=== PATIENT | male | born 1935 | race Caucasian/White ===

== ENCOUNTER 2018-04-10 09:53 | Inpatient (IN) ==
[2018-04-10] MEDS ORDERED: 0.9 % Sodium Chloride 1,000 ML IVC ONE (10:31)
[2018-04-10] MEDS ORDERED: Acetaminophen 325 MG TABLET PO ONE (10:32)
--- NOTE | 2018-04-10 11:07 | Emergency Department Note ---
Disposition Clinical Impression: Elevated troponin, ROBIN (acute kidney injury), Frequent falls UTI (urinary tract infection) Qualifiers: Urinary tract infection type: acute cystitis Hematuria presence: with hematuria Qualified Code(s): N30.01 - Acute cystitis with hematuria Disposition: Admitted As Inpatient Condition: Good Referrals: Eleazar Graff MD [Primary Care Provider] - Forms: ED Satisfaction Letter Time of Disposition: 15:00 General Adult HPI - General Chief complaint: ED Extremity Problem,Nontraumatic Stated complaint: fall Time Seen by Provider: 04/10/18 09:55 Source: EMS Mode of arrival: wheelchair Limitations: no limitations Nursing Notes Reviewed: Yes Vital Signs Reviewed: Yes - History of Present Illness HPI Narrative: 82-year-old male who lives at home with his son presents to the emergency department after multiple falls over the past week. They say throughout the past week he has had a hard time getting up. They have noticed he has been complaining of right hip pain.Having a hard time getting up after he falls. All as well as an unwitnessed they said he never has lost consciousness. Patient does not have any pain anywhere else. Family is getting worried because the increase in falls that the reason why they took him here today. They are also mainly worried about the right hip pain. Patient does not want to be in a ch[facility] he wants to say home. And family is okay with that plan. Patient's hip pain is 6 out of 10 nonradiating sharp stabbing mainly in the right leg. Patient otherwise has no complaints at this time he has had no nausea or vomiting no fevers or chills. Pain Scale: 3 - Related Data Home Medications Medication Instructions Recorded Confirmed Aspirin [Lo-Dose Aspirin EC] 81 mg PO DAILY 04/10/18 04/10/18 Clopidogrel [Plavix] 75 mg PO DAILY 04/10/18 04/10/18 Metoprolol XL (24 HR) Succ [Toprol 50 mg PO DAILY 04/10/18 04/10/18 XL] Ubidecarenone/Vit E Acetate [Co 1 cap PO DAILY 04/10/18 04/10/18 Q-10 100 mg Softgel] Allergies Allergy/AdvReac Type Severity Reaction Status Date / Time No Known Allergies Allergy Verified 04/10/18 14:51 All systems ED: reviewed and negative except as stated. Review of Systems: As Per HPI Constitutional: Denies: fever, chills, weakness, weight change Eyes: Denies: eye pain, eye discharge, vision change ENT ED: Denies: ear pain, throat pain, dental pain, hearing loss, epistaxis, congestion, dysphagia Cardiovascular: Denies: chest pain, palpitations, dyspnea on exertion, edema, syncope Respiratory: Denies: cough, dyspnea, wheezes, hemoptysis, stridor Gastrointestinal: Denies: abdominal pain, nausea, vomiting, diarrhea, constipation, hematemesis, melena, hematochezia Genitourinary: Denies: urgency, dysuria, frequency, hematuria Musculoskeletal: Reports: arthralgia. Denies: back pain, neck pain, myalgia Integumentary: Denies: rash, abrasion, lesions Neurological: Reports: weakness. Denies: headache, numbness, paresthesias, confusion, abnormal gait Psychiatric: Denies: anxiety, depression, suicidal thoughts, homicidal thoughts , auditory hallucinations, visual hallucinations Endocrine: Denies: fatigue Hematological/Lymphatic: Denies: easy bleeding, easy bruising Past Medical History - Past Medical History Attestation: Yes The following information was validated with the patient. Source: patient Medical history: Reports: diabetes, hyperlipidemia, hypertension, myocardial infarction, renal disease - Social History Smoking Status: Current every day smoker Alcohol use: Reports: none Drug use: Reports: none Physical Exam - General Limitations: no limitations General appearance: alert, in no apparent distress - Head Head exam: atraumatic, normocephalic, normal inspection - Eye Eye exam: Present: normal appearance, PERRL, EOMI - ENT ENT exam: normal exam, normal oropharynx, mucous membranes moist - Neck Neck exam: Present: normal inspection, full ROM, trachea midline - Chest Chest inspection: Present: normal inspection, symmetric chest wall rise - Respiratory Respiratory exam: Present: normal lung sounds bilaterally - Cardiovascular Cardiovascular exam: Present: regular rate, normal rhythm, normal heart sounds - Abdominal Exam Abdominal exam: Present: soft, Non-Tender, normal bowel sounds. Absent: tenderness, distention, guarding, rebound, rigidity - Extremities Exam Extremities exam: Present: normal inspection, full ROM. Absent: tenderness, pedal edema - Expanded Lower Extremity Exam Upper leg exam: Present: normal inspection, full ROM Lower leg exam: Present: normal inspection, full ROM Ankle exam: Present: normal inspection, full ROM Neurovascular/Tendon exam: Present: normal capillary refill. Absent: pulse deficit, motor deficit, sensory deficit, tendon deficit - Back Exam Back exam: Present: normal inspection, full ROM. Absent: tenderness, CVA tenderness (R), CVA tenderness (L) - Neurological Exam Neurological exam: Present: alert, oriented X3 - Expanded Neurological Exam Patient oriented to: Present: person, place, time Coma Scale Eye Opening: Spontaneous Coma Scale Motor Response: Obeys Commands Coma Scale Verbal Response: Oriented Coma Scale Total: 15 - Skin Skin exam: Present: warm, dry, intact, normal color Course Course Narrative: 82-year-old male here for multiple falls. We will do a head CT and neck CT as well as basic labs including CBC, BMP, troponin, EKG we will also get a pelvis x -ray and right femur x-ray. - Consultations Consultation #1: Spoke with the on-call hospitalist who agreed to admit the patient to their service. Spoke with Dr. Wheeler Time: 14:59 Vital Signs Temperature 97.9 F 04/10/18 10:01 Pulse Rate 98 04/10/18 10:01 Respiratory Rate 18 04/10/18 10:01 Blood Pressure 162/87 04/10/18 10:01 O2 Sat by Pulse Oximetry 97 04/10/18 10:01 Temperature 97.9 F 04/10/18 10:01 Pulse Rate 102 04/10/18 14:53 Respiratory Rate 18 04/10/18 14:53 Blood Pressure 144/92 04/10/18 14:53 O2 Sat by Pulse Oximetry 95 04/10/18 14:53 Oxygen Delivery Oxygen Delivery Room Air Medical Decision Making - [facility] Narrative Medical decision making narrative: 82-year-old male here for frequent falls. CT head did show possible old subdural hematoma but there is no acute findings. There were also old infarcts in that. CT neck had no acute findings. Labs did show an elevated troponin of 0.16. Due to patient's fall history we felt anticoagulation not necessary at this time and would be contraindicated so patient was not given aspirin. EKG had no acute findings on it. Patient did have an abnormal urinalysis that glucose esterase as well as white blood cells so we did start patient on Rocephin. Hip x-rays as well as femur x-rays did not show any acute fractures. Chest x-ray no acute findings. Due to blood in the urinalysis we did get a CT abdomen and pelvis to rule out any signs of stone this did not have any stones or any other acute findings in the abdomen series. Patient did have a leukocytosis of 18. Patient also has elevated creatinine but does have stage IV chronic kidney disease and is known for that. This is unchanged when compared with old ones. And after speaking with family. After speaking with family they felt that admission would be warranted so they can get all this taking care of in the hospital. I spoke with the hospitalist on-call who agreed to admit the patient. Patient was admitted in stable condition. Cervical Spine CT 04/10/18 10:30 IMPRESSION: No acute osseous injury of the cervical spine. D/ / 04/10/2018 12:11:41 Marshal Anderson MD / Sabi Cortes Interpreting Provider: Marshal Anderson MD Head CT 04/10/18 10:30 IMPRESSION: No acute intracranial hemorrhage or mass lesion. Chronic appearing infarcts. Positional prominence of subarachnoid spaces over both cerebral convexities and the cerebellum. Small subdural hygromas and/or chronic subdural hematomas are considered less likely. D/ / Marcell Ramirez MD / Marcell Ramirez MD Interpreting Provider: Marcell Ramirez MD Femur X-Ray 04/10/18 10:32 IMPRESSION: No evidence of acute fracture. D/ / Marcell Ramirez MD / Marcell Ramirez MD Interpreting Provider: Marcell Ramirez MD Pelvis X-Ray 04/10/18 10:32 IMPRESSION: No evidence of acute fracture. D/ / Marcell Ramirez MD / Marcell Ramirez MD Interpreting Provider: Marcell Ramirez MD Chest X-Ray 04/10/18 12:04 IMPRESSION: 1. Basilar atelectasis with trace effusions. 2. No displaced fracture is identified. D/ / 04/10/2018 13:19:58 Delmi Arcos MD / shavon Interpreting Provider: Delmi Arcos MD Abdomen/Pelvis CT 04/10/18 13:38 IMPRESSION: 1. No acute intra-abdominal abnormality to account for the patient's symptoms. 2. Aneurysmal dilatation of the infrarenal abdominal aorta up to 3.7 cm. Severe atherosclerosis. 3. Nonobstructing left nephrolithiasis. Left renal atrophy is also present. 4. Cholelithiasis. 5. Severe diverticulosis. RECOMMENDATIONS: Managing Abdominal Aortic Aneurysms 3.5-3.9 cm: Every 1 year. Reference: J Vasc Surg. 2008;50(4 Suppl):S2-49 D/ / Delmi Arcos MD / Delmi Arcos MD Interpreting Provider: Delmi Arcos MD - Medical Records Medical records reviewed: Yes I reviewed the patient's medical records. - Lab Data Lab results reviewed: Yes I reviewed the patient's lab results. Result diagrams: 04/10/18 11:40 04/10/18 11:40 Lab Results 04/10/18 04/10/18 04/10/18 Range/Units 11:40 11:40 13:11 WBC 18.5 H (4.3-11.1) K/mcL RBC 4.18 L (4.19-5.50) M/mcL Hgb 12.4 L (12.9-16.9) g/dL Hct 38.8 (37.5-50.1) % MCV 92.8 (83.0-100.0) fL MCH 29.7 (28.0-33.3) pg MCHC 32.0 (31.6-35.5) g/dL RDW 14.4 (11.5-14.5) % Plt Count 173 (140-400) K/mcL MPV 11.3 (9.4-12.4) fL Immature Gran % 0.6 (0-4) % Seg Neutrophils % 80.7 % Lymphocytes % 6.5 % Monocytes % 12.0 % Eosinophils % 0.0 % Basophils % 0.2 % Neutrophils # 14.9 H (1.6-8.9) K/mcL Lymphocytes # 1.2 (0.6-4.6) K/mcL Monocytes # 2.2 H (0.0-1.3) K/mcL Eosinophils # 0.0 (0.0-0.6) K/mcL Basophils # 0.0 (0.0-0.2) K/mcL Sodium 139 (136-145) mEq/L Potassium 3.7 (3.5-5.1) mEq/L Chloride 109 H (98-107) mEq/L Carbon Dioxide 22 L (23-29) mEq/L BUN 46 H (8-23) mg/dL Creatinine 3.18 H (0.70-1.30) mg/dL Est GFR ( Amer) 23 L (> 60) Est GFR (Non-Af Amer) 19 L (> 60) BUN/Creatinine Ratio 14 (6-26) Glucose 115 H (70-105) mg/dL Calculated Osmolality 301 H (280-300) Calcium 10.5 H (8.6-10.3) mg/dL Magnesium 2.1 (1.6-2.6) mg/dL Troponin I 0.16 H* (< 0.04) ng/mL Urine Color Yellow (Yellow) Urine Clarity Cloudy A (Clear) Urine pH 5.5 (5.0-8.0) pH Units Ur Specific Nichols 1.016 (1.010-1.025) Urine Protein 100 H (Neg-Trace) mg/dL Urine Glucose (UA) Normal (Normal) mg/dL Urine Ketones Negative (Negative) mg/dL Urine Blood Moderate H (Negative) Urine Nitrite Negative (Negative) Urine Bilirubin Negative (Negative) Urine Urobilinogen Normal (Normal) mg/dL Ur Leukocyte Esterase Large H (Negative) Urine Microscopic RBC 5-15 H (0-3) per hpf Urine Microscopic WBC 30-50 H (0-3) per hpf Ur Squamous Epith Cells Few (None-Few) per lpf Ur Culture Indicated? YES A (NO) - Radiology Data Radiology results reviewed: Yes I reviewed the patient's radiology results. - EKG Data EKG #1 EKG attestation: Yes I reviewed and interpreted this EKG. EKG results narrative: EKG done at 1047 review by myself the attending shows sinus rhythm at a rate of 66, NV interval 187, QRS 104, QTc 416 with a no acute ST changes no acute T- wave changes no other signs of ischemia. No heartstring, hypertrophy, heart block. No WPW/Brugada/HOCM. Overall this EKG is unchanged when compared with old one done 05/01/16
[2018-04-10 11:55] LABS: Basophils % 0.2 %; Hematocrit 38.8 % (37.5-50.1); Hemoglobin 12.4 g/dL (12.9-16.9); Immature Granulocytes % 0.6 % (0-4); Lymphocytes # 1.2 K/mcL (0.6-4.6); Lymphocytes % 6.5 %; Mean Corpuscular Hemoglobin 29.7 pg (28.0-33.3); Mean Corpuscular Volume 92.8 fL (83.0-100.0); Mean Platelet Volume 11.3 fL (9.4-12.4); Monocytes # 2.2 K/mcL (0.0-1.3); Neutrophils # 14.9 K/mcL (1.6-8.9); Platelet Count 173 K/mcL (140-400); Red Blood Count 4.18 M/mcL (4.19-5.50); Red Cell Distribution Width 14.4 % (11.5-14.5); Segmented Neutrophils % 80.7 %
[2018-04-10 12:20] LABS: Calcium 10.5 mg/dL (8.6-10.3); Magnesium 2.1 mg/dL (1.6-2.6); Potassium 3.7 mEq/L (3.5-5.1)
[2018-04-10 12:32] LABS: Troponin I 0.16 ng/mL (< 0.04)
--- NOTE | 2018-04-10 12:57 | Emergency Department Note ---
Disposition Clinical Impression: Elevated troponin, ROBIN (acute kidney injury) Disposition: Admitted As Inpatient Condition: Good Referrals: Eleazar Graff MD [Primary Care Provider] - Forms: ED Satisfaction Letter Time of Disposition: 12:57 General Adult HPI - General Chief complaint: ED Extremity Problem,Nontraumatic Stated complaint: fall Time Seen by Provider: 04/10/18 09:55 Source: EMS Mode of arrival: wheelchair Limitations: no limitations - History of Present Illness Pain Scale: 3 - Related Data Allergies Allergy/AdvReac Type Severity Reaction Status Date / Time No Known Allergies Allergy Verified 04/10/18 10:48 Constitutional: Denies: fever, chills, weakness, weight change Eyes: Denies: eye pain, eye discharge, vision change ENT ED: Denies: ear pain, throat pain, dental pain, hearing loss, epistaxis, congestion, dysphagia Cardiovascular: Denies: chest pain, palpitations, dyspnea on exertion, edema, syncope Respiratory: Denies: cough, dyspnea, wheezes, hemoptysis, stridor Gastrointestinal: Denies: abdominal pain, nausea, vomiting, diarrhea, constipation, hematemesis, melena, hematochezia Genitourinary: Denies: urgency, dysuria, frequency, hematuria Musculoskeletal: Reports: arthralgia. Denies: back pain, neck pain, myalgia Integumentary: Denies: rash, abrasion, lesions Neurological: Reports: weakness. Denies: headache, numbness, paresthesias, confusion, abnormal gait Psychiatric: Denies: anxiety, depression, suicidal thoughts, homicidal thoughts , auditory hallucinations, visual hallucinations Endocrine: Denies: fatigue Hematological/Lymphatic: Denies: easy bleeding, easy bruising Past Medical History - Past Medical History Medical history: Reports: diabetes, hyperlipidemia, hypertension, myocardial infarction, renal disease - Social History Smoking Status: Current every day smoker Alcohol use: Reports: none Drug use: Reports: none Physical Exam - General Limitations: no limitations General appearance: alert, in no apparent distress Course Vital Signs Temperature 97.9 F 04/10/18 10:01 Pulse Rate 98 04/10/18 10:01 Respiratory Rate 18 04/10/18 10:01 Blood Pressure 162/87 04/10/18 10:01 O2 Sat by Pulse Oximetry 97 04/10/18 10:01 Temperature 97.9 F 04/10/18 10:01 Pulse Rate 70 04/10/18 11:44 Respiratory Rate 18 04/10/18 11:44 Blood Pressure 158/79 04/10/18 11:44 O2 Sat by Pulse Oximetry 96 04/10/18 11:44 Oxygen Delivery Oxygen Delivery Room Air Medical Decision Making - Lab Data Result diagrams: 04/10/18 11:40 04/10/18 11:40 Lab Results 04/10/18 04/10/18 Range/Units 11:40 11:40 WBC 18.5 H (4.3-11.1) K/mcL RBC 4.18 L (4.19-5.50) M/mcL Hgb 12.4 L (12.9-16.9) g/dL Hct 38.8 (37.5-50.1) % MCV 92.8 (83.0-100.0) fL MCH 29.7 (28.0-33.3) pg MCHC 32.0 (31.6-35.5) g/dL RDW 14.4 (11.5-14.5) % Plt Count 173 (140-400) K/mcL MPV 11.3 (9.4-12.4) fL Immature Gran % 0.6 (0-4) % Seg Neutrophils % 80.7 % Lymphocytes % 6.5 % Monocytes % 12.0 % Eosinophils % 0.0 % Basophils % 0.2 % Neutrophils # 14.9 H (1.6-8.9) K/mcL Lymphocytes # 1.2 (0.6-4.6) K/mcL Monocytes # 2.2 H (0.0-1.3) K/mcL Eosinophils # 0.0 (0.0-0.6) K/mcL Basophils # 0.0 (0.0-0.2) K/mcL Sodium 139 (136-145) mEq/L Potassium 3.7 (3.5-5.1) mEq/L Chloride 109 H (98-107) mEq/L Carbon Dioxide 22 L (23-29) mEq/L BUN 46 H (8-23) mg/dL Creatinine 3.18 H (0.70-1.30) mg/dL Est GFR ( Amer) 23 L (> 60) Est GFR (Non-Af Amer) 19 L (> 60) BUN/Creatinine Ratio 14 (6-26) Glucose 115 H (70-105) mg/dL Calculated Osmolality 301 H (280-300) Calcium 10.5 H (8.6-10.3) mg/dL Magnesium 2.1 (1.6-2.6) mg/dL Troponin I 0.16 H* (< 0.04) ng/mL Attestation Statement - Attestation Attestation: I examined this patient and my medical decision-making was reviewed with the Resident Physician. I agree with the documented findings, disposition and treatment plan as described except to the extent set forth below. 82 year old male presents to the ED with complaints of unwtinessed fall that happened about 2 dasa go. PAtients tates that he has right hip pain and did hit his head on his fall. It appears that he has an elevated troponin level with small t wave inversions in V3-4 from 2016 and we have considered ASA therapy although HCT shows a possible chornic subdural hematoma vs hygroma. And with his age and possible chronic hematoma I would not recommend anticoagultion therapy at this time. Ananya als ohas worsening ROBIN. He was not down for a prolonged time. We will obtain a UA and then admi to medicine
[2018-04-10 13:28] LABS: Bilirubin,Urine Negative (Negative); Blood,Urine Moderate (Negative); Clarity,Urine Cloudy (Clear); Color,Urine Yellow (Yellow); Glucose,Urine (UA) Normal (Normal); Ketones,Urine Negative (Negative); Leukocyte Esterase,Urine Large (Negative); Nitrite,Urine Negative (Negative); PH,Urine 5.5 pH Units (5.0-8.0); Protein,Urine 100 mg/dL (Neg-Trace); Specific Gravity,Urine 1.016 (1.010-1.025); Urobilinogen,Urine Normal (Normal)
[2018-04-10 13:52] LABS: Squamous Epithelial Cell,Urine Few per lpf (None-Few); WBC,Urine 30-50 per hpf (0-3)
[2018-04-10] MEDS ORDERED: cefTRIAXone 1,000 MG in 0.9 % Sodium Chloride Mini Bag 100 ML IVPB ONE (13:55)
--- NOTE | 2018-04-10 16:10 | Internal Med History&Physical ---
Date of Encounter: 04/10/18 Time of Encounter: 16:10 Internal Medicine - H&P: HPI Chief complaint: fall Admitted From: Home History of present illness: Mr. Patiño is a 82 year old male Past Med Surg Social Fam HX - Past Medical History Medical history: diabetes, hyperlipidemia, hypertension, myocardial infarction, renal disease - Social History Smoking Status: Current every day smoker Alcohol use: none Drug use: none Internal Medicine - H&P: Meds Aspirin [Lo-Dose Aspirin EC] 81 mg PO DAILY 04/10/18 [History] Clopidogrel [Plavix] 75 mg PO DAILY 04/10/18 [History] Metoprolol XL (24 HR) Succ [Toprol XL] 50 mg PO DAILY 04/10/18 [History] Ubidecarenone/Vit E Acetate [Co Q-10 100 mg Softgel] 1 cap PO DAILY 04/10/18 [ History] 3 Allergy/AdvReac Type Severity Reaction Status Date / Time No Known Allergies Allergy Verified 04/10/18 14:51 All Systems PM: A 10-system review of systems was performed and is negative for pertinent findings except as documented above in the HPI. - Constitutional Vitals: Temp Pulse Resp BP Pulse Ox 97.9 F 102 18 144/92 95 04/10/18 10:01 04/10/18 14:53 04/10/18 14:53 04/10/18 14:53 04/10/18 14:53 Internal Med - H&P Results - Labs CBC & Chem 7: 04/10/18 11:40 04/10/18 11:40 - Time Spent With Patient Total time spent is greater than 50% in coordination of care (as documented) at patient's floor/unit and/or counseling patient:
[2018-04-10] MEDS ORDERED: Naloxone 0.4 MG/ML INJ IVP PRN (16:11)
--- NOTE | 2018-04-10 16:26 | Internal Med History&Physical ---
Date of Encounter: 04/10/18 Time of Encounter: 16:00 Internal Medicine - H&P: HPI Chief complaint: Frequent fall Admitted From: Home Plans for Post Hospital Care: Home History of present illness: Mr. Patiño is a 82 year old male presented to ER for frequent fall. Patient past medical history is significant for hypertension, PVD, CKD, AAA. Patient has frequent falls since August. Patient has fall yesterday evening. Patient also complaining right hip pain. Patient's and the family denies loss of consciousness. Not sure if patient has hit his head but he denies head or neck pain. Patient denies other part of the body pain. Patient denies dizziness, shortness of breath, chest pain. In the emergency room, head, c- spine, abdominal CT and pelvis and femoral x-ray has been done. Results are unremarkable. UA shows UTI. Patient has mild elevated troponin and elevated creatinine from baseline. Patient was admitted for frequent fall, acute on chronic renal failure, and elevated troponin. I have discussed CODE STATUS with patient and patient's son. I was clearly told patient does not want CPR or intubation. DNR DNI placed. Past Med Surg Social Fam HX - Past Medical History Medical history: diabetes, hyperlipidemia, hypertension, myocardial infarction, renal disease - Social History Smoking Status: Current every day smoker Alcohol use: none Drug use: none - Family History Mother History Unknown: Yes Internal Medicine - H&P: Meds Aspirin [Lo-Dose Aspirin EC] 81 mg PO DAILY 04/10/18 [History] Clopidogrel [Plavix] 75 mg PO DAILY 04/10/18 [History] Metoprolol XL (24 HR) Succ [Toprol XL] 50 mg PO DAILY 04/10/18 [History] Ubidecarenone/Vit E Acetate [Co Q-10 100 mg Softgel] 1 cap PO DAILY 04/10/18 [ History] 3 Allergy/AdvReac Type Severity Reaction Status Date / Time No Known Allergies Allergy Verified 04/10/18 14:51 All Systems PM: A 10-system review of systems was performed and is negative for pertinent findings except as documented above in the HPI. - Constitutional Vitals: Temp Pulse Resp BP Pulse Ox 97.9 F 102 18 144/92 95 04/10/18 10:01 04/10/18 14:53 04/10/18 14:53 04/10/18 14:53 04/10/18 14:53 General appearance: Present: A&O X 3, no acute distress, answers questions appropriately Exam: Patient is laying on bed comfortably, in NAD - Head Head exam: Present: atraumatic, normocephalic - Eye Eye exam: Present: PERRL, conjuntiva pink, sclera anicteric Pupils: Present: PERRL - Neck Neck exam general surgery: Present: supple, trachea midline. Absent: lymphadenopathy - Respiratory Respiratory exam: Present: CTAB. Absent: accessory muscle use, rales, rhonchi, wheezes - Cardiovascular Cardiovascular exam: Present: RRR, +S1, +S2. Absent: diastolic murmur, gallop, rubs, systolic murmur - GI/Abdominal GI/Abdominal exam: Present: normal bowel sounds, soft, no peritoneal signs. Absent: distended, tenderness - Extremities Exam Extremities exam: Present: pedal edema (Mild pedal edema bilaterally), warm, radial pulses palpable and symmetrical. Absent: calf tenderness, cyanotic Additional comments: Right hip pain, ROM limited. - Neurological Exam Neurological exam: Present: CN II-XII intact, oriented X3, no focal deficits. Absent: pronater drift, facial droop, speech deficit - Skin Skin exam: Present: dry, intact Internal Med - H&P Results - Labs CBC & Chem 7: 04/10/18 11:40 04/10/18 11:40 - Assessment and plan (1) Acute on chronic renal failure Current Visit: Yes Status: Acute Assessment and plan: Patient has CKD. Patient has left kidney atrophy on Abd CT. will closely monitor renal function. Makes pt adequate hydrated. Avoid nephrotoxic medications. Will consult nephrology for further management. Qualifiers: Acute renal failure type: unspecified Chronic kidney disease stage: stage 4 (severe) Qualified Code(s): N17.9 - Acute kidney failure, unspecified; N18.4 - Chronic kidney disease, stage 4 (severe) (2) Hypertension Current Visit: Yes Status: Acute Assessment and plan: Continue home medications. Qualifiers: Hypertension type: essential hypertension Qualified Code(s): I10 - Essential (primary) hypertension (3) PVD (peripheral vascular disease) Current Visit: Yes Status: Acute Assessment and plan: S/P bypass surgery. Continue home medication aspirin and Plavix. (4) DVT prophylaxis Current Visit: Yes Status: Acute Assessment and plan: EPCDs (5) Elevated troponin Current Visit: Yes Status: Acute Assessment and plan: Patient denies chest pain. Mild elevated troponin probably due to CKD. However , need to rule out ACS. - Continuous cardiac monitoring - Track 3 sets of troponin to see the trend. (6) Frequent falls Current Visit: Yes Status: Acute Assessment and plan: Probably due to aging. No fracture identified so far. Will consult PT OT and home health care social worker for further management. (7) UTI (urinary tract infection) Current Visit: Yes Status: Acute Assessment and plan: UA shows UTI. Continue Rocephin. Follow-up urine culture. Qualifiers: Urinary tract infection type: acute cystitis Hematuria presence: without hematuria Qualified Code(s): N30.00 - Acute cystitis without hematuria (8) AAA (abdominal aortic aneurysm) Current Visit: Yes Status: Acute Assessment and plan: CT abd shows AAA with diameter 3.7cm. continue closely monitor as outpatient. Qualifiers: Presence of rupture: without rupture Qualified Code(s): I71.4 - Abdominal aortic aneurysm, without rupture - Time Spent With Patient Total time spent is greater than 50% in coordination of care (as documented) at patient's floor/unit and/or counseling patient: 40 minutes Greater than 35 minutes
[2018-04-11 03:56] LABS: Basophils % 0.1 %; Eosinophils % 0.1 %; Hematocrit 38.4 % (37.5-50.1); Hemoglobin 12.3 g/dL (12.9-16.9); Immature Granulocytes % 0.6 % (0-4); Lymphocytes # 1.2 K/mcL (0.6-4.6); Lymphocytes % 7.4 %; Mean Corpuscular Hemoglobin 29.6 pg (28.0-33.3); Mean Corpuscular Volume 92.3 fL (83.0-100.0); Mean Platelet Volume 11.6 fL (9.4-12.4); Monocytes # 1.4 K/mcL (0.0-1.3); Monocytes % 8.8 %; Neutrophils # 13.4 K/mcL (1.6-8.9); Platelet Count 163 K/mcL (140-400); Red Blood Count 4.16 M/mcL (4.19-5.50); Red Cell Distribution Width 14.5 % (11.5-14.5)
[2018-04-11 04:11] LABS: Magnesium 2.2 mg/dL (1.6-2.6); Uric Acid 6.1 mg/dL (2.3-7.6)
--- NOTE | 2018-04-11 07:57 | Cardiology Consult Note ---
Date of Encounter: 04/11/18 Time of Encounter: 08:57 Assessment and Plan (1) Systolic heart failure, chronic Current Visit: Yes Status: Chronic (2) Acute on chronic renal failure Current Visit: Yes Status: Acute Qualifiers: Acute renal failure type: unspecified Chronic kidney disease stage: stage 4 (severe) Qualified Code(s): N17.9 - Acute kidney failure, unspecified; N18.4 - Chronic kidney disease, stage 4 (severe) (3) Elevated troponin Current Visit: Yes Status: Acute Discussion w patient/family: The patient likely had an elevated troponin secondary to demand ischemia with heart failure. Last EF was 35% done in 2016. Patient denies chest pain and has had no EKG changes. Pt also does not want to undergo a cardiac cath. Continue current medications, no intervention necessary at this time. The assessment and plan as outlined above was discussed with the patient and/or family members who expressed understanding and agreement. All questions were answered. Thank you for involving us in the care of your patient. Please call with any questions. History of Present Illness Consult date: 04/10/18 Requesting physician: Marco Arellano Consult reason: Hx CHF, elevated troponin, EKG changes Chief complaint: fall, right hip pain History of present illness: Mr. Patiño is a 82 year old male with PMHx of CHF and CKD who presents several days after a fall with right hip pain. He states this pain is a 3/10 currently. In the ED he was found to have an elevated troponin, along with ROBIN on CKD. He denies ever having chest pain or shortness of breath, palpitations, abdominal pain, nausea, headache, dizziness or lightheadedness. He did not pass out when he fell, but states his leg just gave out on him. He remembers the event and did not hit his head. When asked if he would like any invasive interventions done in case of a heart arrhythmia or his heart stopping he states he would not want that done and he is DNR-CCa/DNI. He asks if he can be discharged to go home as he feels better. Past Med Surg Social Fam HX - Past Medical History Medical history: diabetes, hyperlipidemia, hypertension, myocardial infarction, renal disease Psychiatric history: no psych history - Past Surgical History Additional surgical history: abd stent at [place], - Social History Smoking Status: Current every day smoker Smokeless Tobacco Status: No Alcohol use: none Drug use: none - Family History Mother History Unknown: Yes Living Status: Age at : 79 Cause of : stroke Hx Family Cardiac Disorders: Yes Medications and Allergies Aspirin [Lo-Dose Aspirin EC] 81 mg PO DAILY 04/10/18 [History] Clopidogrel [Plavix] 75 mg PO DAILY 04/10/18 [History] Metoprolol XL (24 HR) Succ [Toprol XL] 50 mg PO DAILY 04/10/18 [History] Ubidecarenone/Vit E Acetate [Co Q-10 100 mg Softgel] 1 cap PO DAILY 04/10/18 [ History] 3 Allergy/AdvReac Type Severity Reaction Status Date / Time No Known Allergies Allergy Verified 04/10/18 14:51 All Systems Review: The remainder of the systems were reviewed and are negative - Constitutional Constitutional: weakness, no chills, no fatigue, no fever(s) - Cardiovascular Cardiovascular: no chest pain at rest, no chest pain with exertion, no dyspnea at rest, no dyspnea on exertion, no leg edema, no lightheadedness, no palpitations - Respiratory Respiratory: cough, no dyspnea, no hemoptysis, no wheezing - Gastrointestinal Gastrointestinal: no abdominal pain, no constipation, no diarrhea, no nausea - Genitourinary Genitourinary: no dysuria, no hematuria - Musculoskeletal Musculoskeletal: muscle weakness, no muscle cramps - Integumentary Integumentary: no erythema, no rash - Neurological Neurological: no abnormal speech, no dizziness, no numbness, no syncope Physical Examination Vital Signs, Last 4 Hours Temp Pulse Resp BP Pulse Ox 04/11/18 06:59 96 16 193/99 90 04/11/18 04:02 97.5 F L 141 20 159/103 94 04/11/18 03:58 141 21 159/103 General: Conversant, No Apparent Distress HEENT: Atraumatic, Normocephaly, Mucus Membranes Moist Neck: No JVD, Normal carotid pulses Cardiac: Normal S1 and S2, No Murmur, Other (irregular rhythm, regular rate) Lungs: Normal Breath Sounds, No Wheeze, Rales, Rhonchi Neuro: Alert and responsive, No focal deficits noted Abdomen: Soft, Non-Tender Skin: No rashes noted on visualized skin Musculoskeletal: No Chest Wall Tenderness Extremities: No Cyanosis, No Edema, Normal Pulses Results 04/11/18 03:38 04/11/18 03:38 Lab Results 04/10/18 04/10/18 04/11/18 17:50 23:51 03:38 WBC 16.2 H Hgb 12.3 L Hct 38.4 Plt Count 163 Sodium Potassium Chloride Carbon Dioxide BUN Creatinine Glucose Calcium Magnesium Troponin I 0.12 H* 0.12 H* B-Natriuretic Peptide 04/11/18 04/11/18 03:38 03:38 WBC Hgb Hct Plt Count Sodium 136 Potassium 4.0 Chloride 116 H Carbon Dioxide 19 L BUN 50 H Creatinine 3.22 H Glucose 129 H Calcium 10.0 Magnesium 2.2 Troponin I B-Natriuretic Peptide 974 H Consult Discharge Plan - Plan Referrals: Eleazar Graff MD [Primary Care Provider] -
[2018-04-11] MEDS: Aspirin Enteric Coated 81 MG Tablet PO SCH (08:49)
[2018-04-11] MEDS: cefTRIAXone 1,000 MG in Water for inj. (sterile) 20 ML 10 ML IVP SCH (08:50)
[2018-04-11] MEDS ORDERED: Metoprolol XL (24 HR) Succ 25 MG TAB.ER.24H PO SCH (09:00)
[2018-04-11] MEDS: VIT E ACETATE PO SCH (09:31)
[2018-04-11] MEDS: UBIDECARENONE PO SCH (09:31)
--- NOTE | 2018-04-11 11:02 | Internal Med Progress Note ---
<Glenroy Matos - Last Filed: 04/11/18 10:59> Hospitalist Progress Note - Encounter Date of Encounter: 04/11/18 Time of Encounter: 11:00 - Exam Vitals: Temp Pulse Resp BP Pulse Ox 97.5 F L 96 16 193/99 90 04/11/18 04:02 04/11/18 06:59 04/11/18 06:59 04/11/18 06:59 04/11/18 06:59 Exam: No acute events overnight, patient complains of some hip pain but denies chest pain or shortness of breath He also complains of diffuse abdominal pain and states he has not had a bowel movement in 4 days - Assessment and Plan (1) Systolic heart failure, chronic Current Visit: Yes Status: Acute Assessment and Plan: Patient has previously documented echocardiogram detailing systolic failure with EF 35% His BNP this admission was 974, we are repeating echocardiogram Cardiology has been consulted and patient and family informed Patient is already on beta christopher, we are wary of diuresis due to the patients renal failure We will defer to cardiology and nephrology recommendation for balance of diuresis and nehrotoxicity (2) Atrial fibrillation Current Visit: Yes Status: Acute Assessment and Plan: Patient does not have known history of atrial fibrillation He was found to be in atrial fibrillation this morning Cardizem drip was started and patient's rate is currently controlled Cardiology was consulted, patient is already on anticoagulation for history of peripheral vascular disease We will continue to monitor and refer to cardiology recommendation (3) Elevated troponin Current Visit: Yes Status: Resolved Assessment and Plan: Patient had elevated troponin admission, troponins were cycled 3 Troponins were decreased, patient no longer has chest pain (4) Frequent falls Current Visit: Yes Status: Acute Assessment and Plan: Patient presented with a complaint of frequent falls, CT head, cervical XRay, XR pelvis, hip x-ray were all negative for acute process He described his falls as being due to weakness and not lightheadedness I believe that his falls are due to his newly found atrial fibrillation and his history of systolic heart failure, in addition to generalized deconditioning and age (5) UTI (urinary tract infection) Current Visit: Yes Status: Acute Assessment and Plan: Patient UA was suspicious for UTI He was started on Rocephin He continues to have a white count We will continue Rocephin (6) Acute on chronic renal failure Current Visit: Yes Status: Acute Assessment and Plan: Patient has history of chronic renal failure CT abdomen and pelvis showed left renal atrophy Patient's creatinine currently 3.22 Nephrology has been consulted We will defer to their recommendation (7) Hypertension Current Visit: Yes Status: Chronic Assessment and Plan: Patient has history of chronic hypertension He is currently being treated with metoprolol and Cardizem blood pressure currently stable we will continue to monitor (8) PVD (peripheral vascular disease) Current Visit: No Status: Chronic Assessment and Plan: Patient has history of chronic peripheral vascular disease He is being treated with aspirin and Plavix DVT Prophylaxis: Patient taking aspirin and Plavix - Time Spent with Patient Total time spent is greater than 50% in coordination of care (as documented) at patient's floor/unit and/or counseling patient: Plan of Care Discussed with: family Internal Medicine: Result - Labs CBC & Chem 7: 04/11/18 03:38 04/11/18 03:38 Labs: Short CBC 04/11/18 Range/Units 03:38 WBC 16.2 H (4.3-11.1) K/mcL Hgb 12.3 L (12.9-16.9) g/dL Hct 38.4 (37.5-50.1) % Plt Count 163 (140-400) K/mcL Neutrophils # 13.4 H (1.6-8.9) K/mcL BMP 04/11/18 03:38 Sodium 136 Potassium 4.0 Chloride 116 H Carbon Dioxide 19 L BUN 50 H Creatinine 3.22 H Glucose 129 H Calcium 10.0 Cardiac Enzymes 04/10/18 04/10/18 Range/Units 17:50 23:51 Troponin I 0.12 H* 0.12 H* (< 0.04) ng/mL - VTE Documentation of Mechanical Device: Intermittent pneumatic compression device Consult Discharge Plan - Plan Referrals: Eleazar Graff MD [Primary Care Provider] - <Marco Arellano - Last Filed: 04/11/18 13:07> Hospitalist Progress Note - Encounter Date of Encounter: 04/11/18 - Exam Vitals: Temp Pulse Resp BP Pulse Ox 97.6 F 89 17 169/63 93 04/11/18 11:18 04/11/18 11:18 04/11/18 11:18 04/11/18 11:18 04/11/18 11:18 - Assessment and Plan (1) Acute on chronic renal failure Current Visit: Yes Status: Acute (2) Hypertension Current Visit: Yes Status: Chronic (3) PVD (peripheral vascular disease) Current Visit: No Status: Chronic (4) DVT prophylaxis Current Visit: Yes Status: Acute (5) Elevated troponin Current Visit: Yes Status: Resolved (6) Frequent falls Current Visit: Yes Status: Acute (7) UTI (urinary tract infection) Current Visit: Yes Status: Acute (8) AAA (abdominal aortic aneurysm) Current Visit: Yes Status: Acute - Time Spent with Patient Total time spent is greater than 50% in coordination of care (as documented) at patient's floor/unit and/or counseling patient: Internal Medicine: Result - Labs CBC & Chem 7: 04/11/18 03:38 04/11/18 03:38 Labs: Short CBC 04/11/18 Range/Units 03:38 WBC 16.2 H (4.3-11.1) K/mcL Hgb 12.3 L (12.9-16.9) g/dL Hct 38.4 (37.5-50.1) % Plt Count 163 (140-400) K/mcL Neutrophils # 13.4 H (1.6-8.9) K/mcL BMP 04/11/18 03:38 Sodium 136 Potassium 4.0 Chloride 116 H Carbon Dioxide 19 L BUN 50 H Creatinine 3.22 H Glucose 129 H Calcium 10.0 Cardiac Enzymes 04/10/18 04/10/18 Range/Units 17:50 23:51 Troponin I 0.12 H* 0.12 H* (< 0.04) ng/mL - Impressions Impressions Echocardiogram 04/10/18 16:44 Impressions: LVEF 35%. Moderately dilated left ventricle. Global left ventricular systolic dysfunction. Mild left ventricular diastolic dysfunction. Atypical septal motion consistent with bundle branch block. Normal right ventricular structure and function. No evidence of pulmonary hypertension. Left Ventricular Wall Motion: Rest Echo Findings The apex, apical inferior, mid inferior, basal inferior, apical anterior, mid anterior, basal anterior, apical septal, mid inferior septal, basal inferior septal, apical lateral, mid anterior lateral, basal anterior lateral, mid anterior septal, mid inferior lateral, basal anterior septal and basal inferior lateral glass were hypokinetic. Findings: Study Quality * Technically adequate exam. ECG Findings * Sinus rhythm with BBB. Left Ventricle * LVEF 35%. * Moderately dilated left ventricle. * Global left ventricular systolic dysfunction. * Mild left ventricular diastolic dysfunction. * Atypical septal motion consistent with bundle branch block. Right Ventricle * Normal right ventricular structure and function. Left Atrium * Moderately dilated left atrium. Right Atrium * Mildly dilated right atrium. Aortic Valve * Trileaflet aortic valve with normal function. * No aortic regurgitation. * No aortic stenosis. Mitral Valve * Mild mitral annular calcification * Trace mitral regurgitation. * No mitral stenosis. Tricuspid Valve * Normal tricuspid valve structure and function. * Trace tricuspid regurgitation. * No evidence of pulmonary hypertension. Pulmonic Valve * Pulmonic valve is not well visualized. * No pulmonic regurgitation. Aorta * Normally sized aortic root. Pericardium * The pericardium appears normal. IVC * Normal IVC dimensions and inspiratory collapse. Pulmonary Artery * Normal visualized portions of the main pulmonary artery. - Attending Attestation I have seen and examined this pt independently. I have discussed with resident physician Dr Matos regarding the management plan. Agree with the documentation. <Glenroy Matos - Last Filed: 04/11/18 10:59> (5) UTI (urinary tract infection) Qualifiers: Urinary tract infection type: acute cystitis Hematuria presence: without hematuria Qualified Code(s): N30.00 - Acute cystitis without hematuria (6) Acute on chronic renal failure Qualifiers: Acute renal failure type: unspecified Chronic kidney disease stage: stage 4 ( severe) Qualified Code(s): N17.9 - Acute kidney failure, unspecified; N18.4 - Chronic kidney disease, stage 4 (severe) (7) Hypertension Qualifiers: Hypertension type: essential hypertension Qualified Code(s): I10 - Essential (primary) hypertension <Marco Arellano - Last Filed: 04/11/18 13:07> (1) Acute on chronic renal failure Qualifiers: Acute renal failure type: unspecified Chronic kidney disease stage: stage 4 ( severe) Qualified Code(s): N17.9 - Acute kidney failure, unspecified; N18.4 - Chronic kidney disease, stage 4 (severe) (2) Hypertension Qualifiers: Hypertension type: essential hypertension Qualified Code(s): I10 - Essential (primary) hypertension (7) UTI (urinary tract infection) Qualifiers: Urinary tract infection type: acute cystitis Hematuria presence: without hematuria Qualified Code(s): N30.00 - Acute cystitis without hematuria (8) AAA (abdominal aortic aneurysm) Qualifiers: Presence of rupture: without rupture Qualified Code(s): I71.4 - Abdominal aortic aneurysm, without rupture
[2018-04-11] MEDS: Acetaminophen 325 MG TABLET PO PRN ×2 (11:23→18:59)
--- NOTE | 2018-04-11 11:39 | Nephrology Consult Note ---
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 Retroperitoneal US, Urine electrolytes and eosinophils -Treatment of UTI per primary team -Gentle rehydration as tolerated by patient given HF -Recommend avoidance of diuretics as able. The patient at this time does not appear to have signs of pulmonary edema or volume overload. If there is concern , gentle diuresis may become indicated, however we do not advise it at this time -Avoid nephrotoxic agents including ACEs/ARBs -Attempt to measure I/Os as possible, however avoid noble. (2) Systolic heart failure, chronic Current Visit: Yes Status: Acute Systolic heart failure, last known EF 35% CXR in ED did show some trace pleural effusions, however this is not demonstrated on lung exam to myself Patient does not complain of orthopnea/PND, there is no JVD Recommend withholding diuretics unless necessary (3) UTI (urinary tract infection) Current Visit: Yes Status: Acute Acute cystitis UA shows pyuria with some microscopic hematuria Urine culture does grow two species of gram positive cocci Management of antibiotics per primary team Qualifiers: Urinary tract infection type: acute cystitis Hematuria presence: without hematuria Qualified Code(s): N30.00 - Acute cystitis without hematuria History of Present Illness - Reason for Consult Consult date: 04/11/18 Acute Kidney Injury Requesting physician: Marco Arellano - Chief Complaint ROBIN - History of Present Illness Mr. Patiño is an 82yo gentleman with a history of DM, HLD, HTN, [place], and CKD IIIB who presented to [facility] ED with complaint of fall and right hip pain. At the time of exam he is very sleepy, and may not have been the most reliable historian. He says that he has been having trouble with his hip for about a year , however he recently had a fall with a hit to his head and has had acute pain to his hip in the time since. He did not suffer any loss of consciousness since that time. He says that this is the latest in what appears to be a string of frequent falls this year, and that he generally feels very unsteady on his feet. When asked, he endorses that this does impact his ability to perform his activities of daily living, including getting up to get food and water for himself. He has noticed that he has not consumed as much water as he usually would have. Additionally, he says that it has made it challenging for him to use the restroom easily. Upon arrival to the ED, the patient was found to have significant elevation in his serum creatinine above baseline, as well as an elevated troponin and BNP. In addition to this, his UA showed moderate blood, and significant pyuria. Nephrology was consulted for this ROBIN, and for recommendations on diuresis in the setting of ROBIN. Past Med Surg Social Fam HX - Past Medical History Medical history: diabetes, hyperlipidemia, hypertension, myocardial infarction, renal disease Psychiatric history: no psych history - Past Surgical History Additional surgical history: abd stent at [place], - Social History Smoking Status: Current every day smoker Smokeless Tobacco Status: No Alcohol use: none Drug use: none - Family History Mother History Unknown: Yes Living Status: Age at : 79 Cause of : stroke Hx Family Cardiac Disorders: Yes Medications and Allergies Aspirin [Lo-Dose Aspirin EC] 81 mg PO DAILY 04/10/18 [History] Clopidogrel [Plavix] 75 mg PO DAILY 04/10/18 [History] Metoprolol XL (24 HR) Succ [Toprol XL] 50 mg PO DAILY 04/10/18 [History] Ubidecarenone/Vit E Acetate [Co Q-10 100 mg Softgel] 1 cap PO DAILY 04/10/18 [ History] 3 Allergy/AdvReac Type Severity Reaction Status Date / Time No Known Allergies Allergy Verified 04/10/18 14:51 Review of Systems Constitutional: frequent falls, lethargy, no excessive sweating, no weight loss Eyes: bilateral: blurred vision (patient denies) Nose, mouth and throat: no dizziness, no headache(s) Cardiovascular: no chest pain, no palpitations Respiratory: no cough, no dyspnea Gastrointestinal: no abdominal pain, no change in bowel habits Genitourinary Male: difficulty urinating, urinary hesitancy, no dysuria, no urinary frequency, no urinary incontinence Musculoskeletal: abnormal gait, muscle weakness Integumentary: no dry skin, no skin ulcer Neurological: no confusion, no loss of vision, no syncope Endocrine: no excessive sweating, no polydipsia, no polyuria Exam - Vital Signs Vital signs: Initial Vital Signs Temp Pulse Resp BP Pulse Ox 97.9 F 98 18 162/87 97 04/10/18 10:01 04/10/18 10:01 04/10/18 10:01 04/10/18 10:01 04/10/18 10:01 Vital Signs - Last 8 Hours Temp Pulse Resp BP Pulse Ox 04/11/18 11:18 97.6 F 89 17 169/63 93 04/11/18 06:59 96 16 193/99 90 04/11/18 04:02 97.5 F L 141 20 159/103 94 04/11/18 03:58 141 21 159/103 Intake and Output 04/10/18 04/11/18 04/11/18 23:59 07:59 15:59 Intake Total 240 / 240 11.8 / 11.8 158.2 / 158.2 Balance 240 / 240 11.8 / 11.8 158.2 / 158.2 Intake: IV Fluids 11.8 / 11.8 38.2 / 38.2 Cardizem 50 MG In 0.9 % Sodium 11.8 / 11.8 38.2 / 38.2 Chloride 40 ML @ 5 MG/HR 5 mls/ hr IVC .Q10H [facility] Rx#:[id number] Oral 240 / 240 0 / 0 120 / 120 Other: Meal Dinner Breakfast Percent of Meal Consumed 85% 50% # Voids 0 0 # Urine Diapers 1 Weight 74.3 kg - General Appearance General appearance: well-developed, well-nourished, appears started age EENT: ATNC, mucous membranes dry, hearing diminished Neck: no JVD, no thyromegaly Respiratory: clear Additional Comments: minimally diminished in the based however no rales noted Cardiology: no murmurs, no rub, no gallops, no edema, regular rate, regular rhythm, normal S1, normal S2 Gastrointestinal: no tenderness, no guarding, no organomegaly, no masses Integumentary: no rash, warm and dry Neurologic: no focal deficit, alert and oriented x3 Musculoskeletal: no deformities, no erythema, no cyanosis, no clubbing Psychiatric: mood/affect appropriate, cooperative Results - Lab Results 04/11/18 03:38 04/11/18 03:38 Most recent lab results Calcium 10.0 mg/dL (8.6-10.3) 04/11/18 03:38 Magnesium 2.2 mg/dL (1.6-2.6) 04/11/18 03:38 Consult Discharge Plan - Plan Referrals: Eleazar Graff MD [Primary Care Provider] -
[2018-04-11] MEDS ORDERED: Ringers Solution, Lactated 1,000 ML IVC SCH (19:00)
[2018-04-11] MEDS ORDERED: Ringers Solution, Lactated 500 ML IVC SCH (23:00)
[2018-04-12 06:59] LABS: Basophils % 0.2 %; Eosinophils # 0.1 K/mcL (0.0-0.6); Eosinophils % 0.9 %; Hematocrit 37.6 % (37.5-50.1); Hemoglobin 12.1 g/dL (12.9-16.9); Immature Granulocytes % 0.4 % (0-4); Lymphocytes # 1.1 K/mcL (0.6-4.6); Lymphocytes % 8.8 %; Mean Corpuscular HGB Conc 32.2 g/dL (31.6-35.5); Mean Corpuscular Hemoglobin 30.1 pg (28.0-33.3); Mean Corpuscular Volume 93.5 fL (83.0-100.0); Mean Platelet Volume 11.4 fL (9.4-12.4); Monocytes # 0.9 K/mcL (0.0-1.3); Monocytes % 7.4 %; Neutrophils # 10.2 K/mcL (1.6-8.9); Platelet Count 169 K/mcL (140-400); Red Blood Count 4.02 M/mcL (4.19-5.50); Red Cell Distribution Width 14.3 % (11.5-14.5); Segmented Neutrophils % 82.3 %
[2018-04-12 07:29] LABS: Calcium 9.7 mg/dL (8.6-10.3); Potassium 3.8 mEq/L (3.5-5.1)
[2018-04-12] MEDS ORDERED: amLODIPine 5 MG TABLET PO SCH (09:00)
[2018-04-12] MEDS: Metoprolol XL (24 HR) Succ 50 MG TAB.ER.24H PO SCH (09:14)
[2018-04-12] MEDS: cefTRIAXone 1,000 MG in Water for inj. (sterile) 20 ML 10 ML IVP SCH (09:14)
[2018-04-12] MEDS: Aspirin Enteric Coated 81 MG Tablet PO SCH (09:14)
--- NOTE | 2018-04-12 10:11 | Internal Med Progress Note ---
Hospitalist Progress Note - Encounter Date of Encounter: 04/12/18 Time of Encounter: 09:00 - Subjective Interval History: Patient is out of bed today. Still complaint right hip pain, improved since yesterday. Otherwise no further complaints. Denies palpitation, shortness of breath, or chest pain. Patient requests to go home. - Exam Vitals: Temp Pulse Resp BP Pulse Ox 98.2 F 81 18 194/101 92 04/12/18 06:53 04/12/18 06:53 04/12/18 06:53 04/12/18 06:53 04/12/18 06:53 Exam: Patient is awake alert, oriented 3. In no acute distress. HEENT: NC/AT PERRL Neck: Supple, nontender, no JVD Lungs: CTA b/l Heart: S1S2, irregularly irregular. Abd: Soft, nontender, BS normal. Ext: Mild ankle edema b/l, mild right hip tenderness. Neuro: No focal deficit. - Assessment and Plan (1) Acute on chronic renal failure Current Visit: Yes Status: Acute Assessment and Plan: Patient has CKD. Patient has left kidney atrophy on Abd CT. will closely monitor renal function. Makes pt adequate hydrated. Avoid nephrotoxic medications. Appreciate nephrology input, further recommendation will be followed. (2) Hypertension Current Visit: Yes Status: Chronic Assessment and Plan: Poorly controlled high blood pressure. Will add amlodipine 5 mg by mouth daily. Increase metoprolol XL to 100 mg qd. Continue closely monitor BP (3) PVD (peripheral vascular disease) Current Visit: No Status: Chronic Assessment and Plan: S/P bypass surgery. Continue home medication aspirin and Plavix. (4) DVT prophylaxis Current Visit: Yes Status: Acute Assessment and Plan: EPCDs (5) Elevated troponin Current Visit: Yes Status: Resolved Assessment and Plan: Patient denies chest pain. Mild elevated troponin probably due to CKD. - Troponin is not dynamically increasing, consider demand ischemia. Patient denies chest pain. (6) Frequent falls Current Visit: Yes Status: Acute Assessment and Plan: Probably due to aging. No fracture identified so far. Will consult PT OT and transition social worker for further management. - Pelvis CT and right hip and femoral x-ray shows no fracture or dislocation. Consider muscle pain or arthritis of right hip. Continue Tylenol for pain control. (7) UTI (urinary tract infection) Current Visit: Yes Status: Acute Assessment and Plan: UA shows UTI. Continue Rocephin. Follow-up urine culture. WBC is getting down. Urine culture suggest Staph and Enterococci at this point, waiting for final report. (8) AAA (abdominal aortic aneurysm) Current Visit: Yes Status: Acute Assessment and Plan: CT abd shows AAA with diameter 3.7cm. continue closely monitor as outpatient. (9) Atrial fibrillation Current Visit: Yes Status: Acute Assessment and Plan: Newly found A. fib. Heart rate is controlled now. Will increase metoprolol XL dose to 100 mg daily for better BP and heart rate control. Patient is on aspirin and Plavix. CHADS-VASC score at least 5. I have discussed anticoagulation option with patient and his son. Because of high risk of fall, family and patient agree with not place any further anticoagulation. R/B/A discussed in detail. (10) Systolic heart failure, chronic Current Visit: Yes Status: Acute Assessment and Plan: Appears euvolemic at this point. Appreciate cardio consult. Continue home medication metoprolol. No SRUTHI inhibitor at this point because of acute on chronic renal failure. DVT Prophylaxis: Patient taking aspirin and Plavix. EPCDs. - Time Spent with Patient Total time spent is greater than 50% in coordination of care (as documented) at patient's floor/unit and/or counseling patient: 40 minutes Greater than 35 minutes Internal Medicine: Result - Labs CBC & Chem 7: 04/12/18 06:36 04/12/18 06:36 Labs: Short CBC 04/12/18 Range/Units 06:36 WBC 12.3 H (4.3-11.1) K/mcL Hgb 12.1 L (12.9-16.9) g/dL Hct 37.6 (37.5-50.1) % Plt Count 169 (140-400) K/mcL Neutrophils # 10.2 H (1.6-8.9) K/mcL BMP 04/12/18 06:36 Sodium 140 Potassium 3.8 Chloride 113 H Carbon Dioxide 19 L BUN 53 H Creatinine 3.32 H Glucose 117 H Calcium 9.7 - Impressions Impressions Echocardiogram 04/10/18 16:44 Impressions: LVEF 35%. Moderately dilated left ventricle. Global left ventricular systolic dysfunction. Mild left ventricular diastolic dysfunction. Atypical septal motion consistent with bundle branch block. Normal right ventricular structure and function. No evidence of pulmonary hypertension. Left Ventricular Wall Motion: Rest Echo Findings The apex, apical inferior, mid inferior, basal inferior, apical anterior, mid anterior, basal anterior, apical septal, mid inferior septal, basal inferior septal, apical lateral, mid anterior lateral, basal anterior lateral, mid anterior septal, mid inferior lateral, basal anterior septal and basal inferior lateral glass were hypokinetic. Findings: Study Quality * Technically adequate exam. ECG Findings * Sinus rhythm with BBB. Left Ventricle * LVEF 35%. * Moderately dilated left ventricle. * Global left ventricular systolic dysfunction. * Mild left ventricular diastolic dysfunction. * Atypical septal motion consistent with bundle branch block. Right Ventricle * Normal right ventricular structure and function. Left Atrium * Moderately dilated left atrium. Right Atrium * Mildly dilated right atrium. Aortic Valve * Trileaflet aortic valve with normal function. * No aortic regurgitation. * No aortic stenosis. Mitral Valve * Mild mitral annular calcification * Trace mitral regurgitation. * No mitral stenosis. Tricuspid Valve * Normal tricuspid valve structure and function. * Trace tricuspid regurgitation. * No evidence of pulmonary hypertension. Pulmonic Valve * Pulmonic valve is not well visualized. * No pulmonic regurgitation. Aorta * Normally sized aortic root. Pericardium * The pericardium appears normal. IVC * Normal IVC dimensions and inspiratory collapse. Pulmonary Artery * Normal visualized portions of the main pulmonary artery. Retroperitoneum Ultrasound 04/11/18 20:30 IMPRESSION: No hydronephrosis. Cortical thickness has decreased since 2016. 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) Qualified Code(s): N17.9 - Acute kidney failure, unspecified; N18.4 - Chronic kidney disease, stage 4 (severe) (2) Hypertension Qualifiers: Hypertension type: essential hypertension Qualified Code(s): I10 - Essential (primary) hypertension (7) UTI (urinary tract infection) Qualifiers: Urinary tract infection type: acute cystitis Hematuria presence: without hematuria Qualified Code(s): N30.00 - Acute cystitis without hematuria (8) AAA (abdominal aortic aneurysm) Qualifiers: Presence of rupture: without rupture Qualified Code(s): I71.4 - Abdominal aortic aneurysm, without rupture (9) Atrial fibrillation Qualifiers: Atrial fibrillation type: unspecified Qualified Code(s): I48.91 - Unspecified atrial fibrillation
--- NOTE | 2018-04-12 10:21 | Nephrology Progress Note ---
Date of Encounter: 04/12/18 Time of Encounter: 11:00 - Assessment and Plan (1) ROBIN (acute kidney injury) Status: Acute Nonoliguric ROBIN on CKD and slightly worsened today; however he is not uremic, nor hyperkalemic or fluid overloaded so no urgent indications for [employer] today. Continue to follow a renal protective strategy by avoiding nephrotoxins as able , dosing any renally cleared Rx by CrCl or eGFR, strict I/Os, etc. Will continue to follow with you. Thank you (2) Acute kidney injury superimposed on chronic kidney disease Status: Acute See above (3) Hypertension Status: Chronic Added hydralazine. Caution with Clonidine d/t his HR, but it may need to be added if necessary. Avoiding SRUTHI or ARB d/t ROBIN on CKD. Qualifiers: Hypertension type: essential hypertension Qualified Code(s): I10 - Essential (primary) hypertension (4) Goals of care, counseling/discussion Status: Acute After I rounded on the pt, I was paged back to the room and returned for a second visit since his son and primary virology teacher had arrived. We discussed dialysis options and after a thorough discussion, the pt and his family voiced that he would "never want" any form of dialysis. When I was asked about his lifeexpectancy, I commented that it could be less than 6 months, but that his renal function trends would provide more accuracy. They thanked me for the time, counseling and help in setting his Renal Goals of care. I spent about 25 min in total between the two visits discussing goals of care. Subjective Principal diagnosis: ROBIN on CKD Interval history: Pt was s/e in his 2NE room with the daughter and RN present. He voiced that he really, truly just wants to go home. He expressed that his in her last months of life had numerous hospitalizations/expenses, and that he does not want to do the same thing. He did not affirm N/V/D or CP. He denied weakness on one side or slurred speech. Objective - Vital Signs Vital signs: Vital Signs Temp Pulse Resp BP Pulse Ox 04/12/18 06:53 98.2 F 81 18 194/101 92 04/12/18 04:37 98.0 F 80 20 183/109 90 04/12/18 00:49 97.8 F 75 20 172/93 92 04/11/18 19:52 98.1 F 102 20 180/90 91 04/11/18 15:15 97.7 F 103 22 147/80 92 04/11/18 11:18 97.6 F 89 17 169/63 93 Intake and Output 04/11/18 04/12/18 04/12/18 23:59 07:59 15:59 Intake Total 810 / 810 0 / 0 Output Total 0 / 0 Balance 810 / 810 0 / 0 Intake: IV Fluids 10 / 10 Cardizem 50 MG In 0.9 % Sodium 10 / 10 Chloride 40 ML @ 5 MG/HR 5 mls/ hr IVC .Q10H [facility] Rx#:[id number] Oral 800 / 800 0 / 0 Output: Urine 0 / 0 Other: # Voids 0 1 4 # Urine Diapers 1 1 1 Weight 74.4 kg Patient Weight 04/12/18 23:59 Weight 74.4 kg - General Appearance General appearance: Present: well-developed, appears started age, chronically ill, fatigue, frail EENT: Present: ATNC, PERRL, mucous membranes moist Neck: Present: supple Respiratory: Present: clear Cardiology: Present: edema (trace pedal edema b/l), normal S1, normal S2 Gastrointestinal: Present: normoactive bowel sounds, no tenderness, no guarding Integumentary: Present: warm and dry, ecchymotic Neurologic: Present: no focal deficit, no asterixis, alert and oriented x3, strength 5/5, CN 3-12 intact Musculoskeletal: Present: no deformities, no erythema, no cyanosis Psychiatric: Present: mood/affect appropriate, cooperative - Lab 04/13/18 02:55 04/13/18 02:55 Most recent lab results Calcium 9.7 mg/dL (8.6-10.3) 04/12/18 06:36 Magnesium 2.2 mg/dL (1.6-2.6) 04/11/18 03:38 - VTE Documentation of Mechanical Device: Intermittent pneumatic compression device Consult Discharge Plan - Plan Instructions: Ciprofloxacin (By mouth), Metoprolol (By mouth), Acetaminophen ( By mouth), Amoxicillin (By mouth), Atrial Fibrillation (DC), Urinary Tract Infection in Men (DC), Peripheral Vascular Disorders (DC), Chronic Hypertension (DC) Referrals: Eleazar Graff MD [Primary Care Provider] - Rohith Valiente, DO [Partnered Physician] - 04/21/18 (please have your blood drawn before you see dr valiente) Prescriptions: Acetaminophen [Tylenol] 650 mg PO Q6HR PRN 5 Days #20 tablet PRN Reason: Mild Pain amLODIPine [Norvasc] 10 mg PO DAILY 30 Days #60 tablet Amoxicillin/Clavulanate [Augmentin] 500 mg PO BIDWM 7 Days #14 tablet Ciprofloxacin [Cipro] 250 mg PO DAILY 7 Days #7 tablet Metoprolol XL (24 HR) Succ [Toprol Xl] 75 mg PO DAILY 30 Days #90 tab.er.24h
[2018-04-12] MEDS: UBIDECARENONE PO SCH (12:30)
[2018-04-12] MEDS: VIT E ACETATE PO SCH (12:30)
[2018-04-12 17:06] LABS: Protein/Creatinine Ratio,Urine 1.91 mg/mg (0.00-0.20); Sodium, Urine 88.3 mEq/L
[2018-04-12] MEDS: Acetaminophen 325 MG TABLET PO PRN (22:24)
[2018-04-13 04:09] LABS: Basophils % 0.3 %; Eosinophils # 0.1 K/mcL (0.0-0.6); Eosinophils % 1.2 %; Hematocrit 36.9 % (37.5-50.1); Hemoglobin 11.9 g/dL (12.9-16.9); Immature Granulocytes % 0.4 % (0-4); Lymphocytes % 8.7 %; Mean Corpuscular HGB Conc 32.2 g/dL (31.6-35.5); Mean Corpuscular Hemoglobin 30.2 pg (28.0-33.3); Mean Corpuscular Volume 93.7 fL (83.0-100.0); Mean Platelet Volume 11.7 fL (9.4-12.4); Monocytes # 1.1 K/mcL (0.0-1.3); Monocytes % 9.2 %; Neutrophils # 9.5 K/mcL (1.6-8.9); Platelet Count 190 K/mcL (140-400); Red Blood Count 3.94 M/mcL (4.19-5.50); Red Cell Distribution Width 14.3 % (11.5-14.5); Segmented Neutrophils % 80.2 %
[2018-04-13 04:23] LABS: Calcium 9.7 mg/dL (8.6-10.3)
[2018-04-13 06:57] VITALS: BP 138/76
[2018-04-13] MEDS ORDERED: Amoxicillin/Clavulanate 500 MG TABLET PO SCH (08:00)
[2018-04-13] MEDS: Aspirin Enteric Coated 81 MG Tablet PO SCH (08:17)
[2018-04-13] MEDS: Metoprolol XL (24 HR) Succ 50 MG TAB.ER.24H PO SCH (08:17)
--- NOTE | 2018-04-13 08:39 | Event Note ---
Date of Encounter: 04/13/18 Time of Encounter: 08:37 Nephrology Chart Review Biochemically stable, if not slightly better. Will reassess tomorrow (Saturday, if he's still admitted). Of note, I had a family meeting yesterday in addition to my regular rounding, and after a long discussion with the son and daughter, the pt has chosen to never want dialysis. I'd be happy to see him in my office to discuss this further. Reasonable to discharge from a nephro perspective. Thank you.
[2018-04-13] MEDS ORDERED: amLODIPine 5 MG TABLET PO SCH (09:00)
--- NOTE | 2018-04-13 09:44 | Discharge Summary ---
- NOTES TO OUTPATIENT PROVIDER Notes to Outpatient Provider: Home medication changes: 1. Metoprolol increased to XL 100mg po qd. 2. Add amlodipine 10mg po daily. Pt has new A Fib developped. Date of Encounter: 04/13/18 Time of Encounter: 09:00 - Discharge Diagnosis (1) Acute on chronic renal failure Priority: Primary Status: Acute Qualifiers: Acute renal failure type: unspecified Chronic kidney disease stage: stage 4 (severe) Qualified Code(s): N17.9 - Acute kidney failure, unspecified; N18.4 - Chronic kidney disease, stage 4 (severe) (2) Hypertension Priority: Secondary Status: Chronic Qualifiers: Hypertension type: essential hypertension Qualified Code(s): I10 - Essential (primary) hypertension (3) PVD (peripheral vascular disease) Priority: Secondary Status: Chronic (4) DVT prophylaxis Priority: Secondary Status: Acute (5) Elevated troponin Priority: Secondary Status: Resolved (6) Frequent falls Priority: Primary Status: Acute (7) UTI (urinary tract infection) Priority: Primary Status: Acute Qualifiers: Urinary tract infection type: acute cystitis Hematuria presence: without hematuria Qualified Code(s): N30.00 - Acute cystitis without hematuria (8) AAA (abdominal aortic aneurysm) Priority: Secondary Status: Acute Qualifiers: Presence of rupture: without rupture Qualified Code(s): I71.4 - Abdominal aortic aneurysm, without rupture (9) Atrial fibrillation Priority: Primary Status: Acute Qualifiers: Atrial fibrillation type: unspecified Qualified Code(s): I48.91 - Unspecified atrial fibrillation (10) Systolic heart failure, chronic Priority: Secondary Status: Acute Hospital course: Mr. Patiño is a 82 year old male presented to ER for frequent fall and right hip pain. Past medical history is significant for AAA, chronic systolic CHF, CKD, PVD. In the emergency room, x-ray shows no fracture or intracranial bleeding. Patient was found UTI with leukocytosis. Acute on chronic renal failure. Patient was admitted and PT OT evaluation was counseled. Patient's hip pain has significantly improved today. Nephrology was counseled for ROBIN. Patient's renal dysfunction seems Chronic and renal function fluctuate, today Cr is 2.89. Patient developed new A. fib during hospitalization. Right now on rate control and aspirin and Plavix. Discussed with family and patient, decided not to start with anticoagulation because of fall risk. Patient's urine culture shows SA and Enterococci, antibiotic changed to by mouth per sensitivity. Patient's leukocytosis has significantly improved after antibiotic treatment during hospitalization. Patient has poorly controlled hypertension, medication was adjusted to get better BP control. Rehab or ECF options has discussed with patient and family, Patient and family refused any facility discharge and would like to go home. Home nurse and home PT OT has been arranged. I saw and examined the patient today. Patient is awake alert oriented 3. Denies hip pain anymore and the said he walked with assistance. Vitals are stable. Patient will discharge home and follow-up with nephrology as outpatient for his CKD. Patient's son and daughter at bedside and promised that they will supervise and take care of patient at home. Patient was prescribed Cipro and Augmentin for his UTI, dose was adjusted per renal function. Patient is stable to discharge home with home health and under family member 24 hour supervision. Discharge discussed with: patient, family - Time Spent with Patient Total time spent providing and/or coordinating discharge services: 40 min Greater than 30 minutes - Discharge Medications Prescriptions: Acetaminophen [Tylenol] 650 mg PO Q6HR PRN 5 Days #20 tablet PRN Reason: Mild Pain amLODIPine [Norvasc] 10 mg PO DAILY 30 Days #60 tablet Amoxicillin/Clavulanate [Augmentin] 500 mg PO BIDWM 7 Days #14 tablet Ciprofloxacin [Cipro] 250 mg PO DAILY 7 Days #7 tablet Metoprolol XL (24 HR) Succ [Toprol Xl] 100 mg PO DAILY 30 Days #60 tab.er.24h Home Medications: Aspirin [Lo-Dose Aspirin EC] 81 mg PO DAILY 04/10/18 [History] Clopidogrel [Plavix] 75 mg PO DAILY 04/10/18 [History] Metoprolol XL (24 HR) Succ [Toprol XL] 50 mg PO DAILY 04/10/18 [History] Ubidecarenone/Vit E Acetate [Co Q-10 100 mg Softgel] 1 cap PO DAILY 04/10/18 [ History] Acetaminophen [Tylenol] 650 mg PO Q6HR PRN 5 Days #20 tablet 04/13/18 [Rx] Amoxicillin/Clavulanate [Augmentin] 500 mg PO BIDWM 7 Days #14 tablet 04/13/18 [ Rx] Ciprofloxacin [Cipro] 250 mg PO DAILY 7 Days #7 tablet 04/13/18 [Rx] Metoprolol XL (24 HR) Succ [Toprol Xl] 100 mg PO DAILY 30 Days #60 tab.er.24h [Rx] amLODIPine [Norvasc] 10 mg PO DAILY 30 Days #60 tablet 04/13/18 [Rx] Allergies/Adverse Reactions: 3 Allergy/AdvReac Type Severity Reaction Status Date / Time No Known Allergies Allergy Verified 04/10/18 14:51 Date of admission: 04/12/18 17:21 Primary care physician: Eleazar Graff MD Discharging clinician: Marco Arellano Anticipated date of discharge: 04/13/18 - Constitutional Vitals: Temp Pulse Resp BP Pulse Ox 98.2 F 56 16 138/76 92 04/13/18 06:57 04/13/18 06:57 04/13/18 06:57 04/13/18 06:57 04/13/18 06:57 General appearance: Present: A&O X 3, no acute distress, answers questions appropriately Exam: Patient is awake alert, oriented 3. In no acute distress. - Head Head exam: Present: atraumatic, normocephalic - Eye Eye exam: Present: PERRL, conjuntiva pink, sclera anicteric Pupils: Present: PERRL - Neck Neck exam general surgery: Present: supple, trachea midline. Absent: lymphadenopathy - Respiratory Respiratory exam: Present: CTAB. Absent: accessory muscle use, rales, rhonchi, wheezes - Cardiovascular Cardiovascular exam: Present: irregular rhythm, +S1, +S2. Absent: diastolic murmur, gallop, rubs, systolic murmur - GI/Abdominal GI/Abdominal exam: Present: normal bowel sounds, soft, no peritoneal signs. Absent: distended, tenderness - Extremities Exam Extremities exam: Present: pedal edema (Mild pedal edema bilaterally), warm, radial pulses palpable and symmetrical. Absent: calf tenderness, cyanotic - Neurological Exam Neurological exam: Present: CN II-XII intact, oriented X3, no focal deficits. Absent: pronater drift, facial droop, speech deficit - Skin Skin exam: Present: dry, intact - Patient Status Disposition: Home Health Service Condition: Good Functional capacity at discharge: uses cane/walker Overall status at discharge: patient is progressing back to baseline - Discharge Instructions Instructions: Atrial Fibrillation (DC), Urinary Tract Infection in Men (DC), Peripheral Vascular Disorders (DC), Chronic Hypertension (DC) Follow Up With: Eleazar Graff MD [Primary Care Provider] - Rohith Valiente DO [Partnered Physician] - 04/21/18 - Diet and Activity Activity: as per physical therapy Diet: advance to your usual diet, low fat, low cholesterol, low salt diet - VTE Documentation of Mechanical Device: Intermittent pneumatic compression device
--- NOTE | 2018-04-13 10:05 | Physician Discharge Referral ---
Home Health/Hosp Referral Info Transfer to: Home Health Provider in Charge Post Discharge: PCP - Diagnosis (1) Acute on chronic renal failure Status: Acute (2) Hypertension Status: Chronic (3) PVD (peripheral vascular disease) Status: Chronic (4) DVT prophylaxis Status: Acute (5) Elevated troponin Status: Resolved (6) Frequent falls Status: Acute (7) UTI (urinary tract infection) Status: Acute (8) AAA (abdominal aortic aneurysm) Status: Acute (9) Atrial fibrillation Status: Acute (10) Systolic heart failure, chronic Status: Acute - Respiratory Orders Smoking Cessation: Smoking cessation has been advised. For more information, call the [place] Tobacco Quit Line at 3-160-KNFC-NOW. - Diet/Nutrition Diet/Nutrition Orders: Renal, Cardiac - Activity Activity Orders: Walker - Services Needed Following services are medically necessary services: Nursing, Home Health Aide, Physical Therapy, Occupational Therapy - Transfer Medications Prescriptions: Acetaminophen [Tylenol] 650 mg PO Q6HR PRN 5 Days #20 tablet PRN Reason: Mild Pain amLODIPine [Norvasc] 10 mg PO DAILY 30 Days #60 tablet Amoxicillin/Clavulanate [Augmentin] 500 mg PO BIDWM 7 Days #14 tablet Ciprofloxacin [Cipro] 250 mg PO DAILY 7 Days #7 tablet Metoprolol XL (24 HR) Succ [Toprol Xl] 100 mg PO DAILY 30 Days #60 tab.er.24h Home Medications: Aspirin [Lo-Dose Aspirin EC] 81 mg PO DAILY 04/10/18 [History] Clopidogrel [Plavix] 75 mg PO DAILY 04/10/18 [History] Metoprolol XL (24 HR) Succ [Toprol XL] 50 mg PO DAILY 04/10/18 [History] Ubidecarenone/Vit E Acetate [Co Q-10 100 mg Softgel] 1 cap PO DAILY 04/10/18 [ History] Acetaminophen [Tylenol] 650 mg PO Q6HR PRN 5 Days #20 tablet 04/13/18 [Rx] Amoxicillin/Clavulanate [Augmentin] 500 mg PO BIDWM 7 Days #14 tablet 04/13/18 [ Rx] Ciprofloxacin [Cipro] 250 mg PO DAILY 7 Days #7 tablet 04/13/18 [Rx] Metoprolol XL (24 HR) Succ [Toprol Xl] 100 mg PO DAILY 30 Days #60 tab.er.24h [Rx] amLODIPine [Norvasc] 10 mg PO DAILY 30 Days #60 tablet 04/13/18 [Rx] Allergies/Adverse Reactions: 3 Allergy/AdvReac Type Severity Reaction Status Date / Time No Known Allergies Allergy Verified 04/10/18 14:51 Certification: Further, I certify that my clinical findings support that this patient is homebound (i.e. absences from home require considerable and taxing effort and are for medical reasons or shinto services or infrequently or short duration when for other reasons) because: Homebound Reason: Patient requires assistance of a person or device to safely leave home Attestation: My signature below is to certify that this patient is under my care and that I, or nurse practitioner, or a physician's commercial lines assistant working with me, has a face-to -face encounter with this patient.
[2018-04-13] MEDS: UBIDECARENONE PO SCH (12:32)
[2018-04-13] MEDS: VIT E ACETATE PO SCH (12:32)
[2018-04-13] MEDS: Acetaminophen 325 MG TABLET PO PRN (12:56)
--- NOTE | 2018-04-14 11:45 | Electrocardiograph Report ---
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
--- NOTE | 2018-04-14 12:26 | Electrocardiograph Report ---
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
== END 2018-04-13 14:47 | disposition home health service (06) | DRG 683 ==
LOC: 2NENU 09:53 → EMEROOARM 09:53 → 2NENU 16:21
PROVIDERS: ADMIT Student in an Organized Health Care Education/Training Program; ATTEND Student in an Organized Health Care Education/Training Program

== ENCOUNTER 2018-05-24 12:54 | Inpatient (IN) ==
--- NOTE | 2018-05-24 13:01 | Emergency Department Note ---
Disposition Clinical Impression: SIRS (systemic inflammatory response syndrome), Elevated troponin, Altered mental status, Respiratory distress, Renal failure Disposition: Admitted As Inpatient Condition: Serious General Adult HPI - General Stated complaint: resp distress Time Seen by Provider: 05/24/18 12:56 - Related Data Home Medications Medication Instructions Recorded Confirmed Aspirin [Lo-Dose Aspirin EC] 81 mg PO DAILY 04/10/18 04/10/18 Clopidogrel [Plavix] 75 mg PO DAILY 04/10/18 04/10/18 Metoprolol XL (24 HR) Succ [Toprol 50 mg PO DAILY 04/10/18 04/10/18 XL] Ubidecarenone/Vit E Acetate [Co 1 cap PO DAILY 04/10/18 04/10/18 Q-10 100 mg Softgel] Previous Rx's Medication Instructions Recorded Acetaminophen [Tylenol] 650 mg PO Q6HR PRN 5 Days #20 04/13/18 tablet Amoxicillin/Clavulanate [Augmentin] 500 mg PO BIDWM 7 Days #14 tablet 04/13/18 Ciprofloxacin [Cipro] 250 mg PO DAILY 7 Days #7 tablet 04/13/18 Metoprolol XL (24 HR) Succ [Toprol 75 mg PO DAILY 30 Days #90 04/13/18 Xl] tab.er.24h amLODIPine [Norvasc] 10 mg PO DAILY 30 Days #60 tablet 04/13/18 Allergies Allergy/AdvReac Type Severity Reaction Status Date / Time No Known Allergies Allergy Verified 04/10/18 14:51 Past Medical History - Past Medical History Medical history: Reports: diabetes, hyperlipidemia, hypertension, myocardial infarction, renal disease Psychiatric history: Reports: no psych history - Social History Smoking Status: Current every day smoker Smokeless Tobacco Status: No Alcohol use: Reports: none Drug use: Reports: none Course Vital Signs Temperature 98.5 F 05/24/18 13:01 Pulse Rate 90 05/24/18 13:01 Respiratory Rate 28 05/24/18 13:01 Blood Pressure 153/82 05/24/18 13:01 O2 Sat by Pulse Oximetry 97 05/24/18 13:01 Temperature 98.2 F 05/24/18 13:47 Pulse Rate 81 05/24/18 16:00 Respiratory Rate 25 05/24/18 16:00 Blood Pressure 169/101 05/24/18 16:00 O2 Sat by Pulse Oximetry 97 05/24/18 16:00 Oxygen Delivery Oxygen Delivery Oximizer Medical Decision Making - Lab Data Result diagrams: 05/24/18 13:16 05/24/18 13:16 Lab Results 05/24/18 05/24/18 05/24/18 Range/Units 13:16 13:16 13:16 WBC 20.1 H (4.3-11.1) K/mcL RBC 3.94 L (4.19-5.50) M/mcL Hgb 11.4 L (12.9-16.9) g/dL Hct 36.5 L (37.5-50.1) % MCV 92.6 (83.0-100.0) fL MCH 28.9 (28.0-33.3) pg MCHC 31.2 L (31.6-35.5) g/dL RDW 15.6 H (11.5-14.5) % Plt Count 290 (140-400) K/mcL MPV 10.9 (9.4-12.4) fL Immature Gran % 0.8 (0-4) % Seg Neutrophils % 90.5 % Lymphocytes % 3.3 % Monocytes % 5.3 % Eosinophils % 0.0 % Basophils % 0.1 % Neutrophils # 18.2 H (1.6-8.9) K/mcL Lymphocytes # 0.7 (0.6-4.6) K/mcL Monocytes # 1.1 (0.0-1.3) K/mcL Eosinophils # 0.0 (0.0-0.6) K/mcL Basophils # 0.0 (0.0-0.2) K/mcL PT 14.9 H (9.4-12.1) Seconds INR 1.3 Sample Site ABG pH (7.32-7.45) pH Units ABG pCO2 (35-45) mmHg ABG pO2 (85-104) mmHg ABG HCO3 (21-27) mEq/L ABG Total CO2 (20-26) mEq/L ABG O2 Saturation (95-98) % ABG Base Excess (-2 to 3) mEq/L Yohan Test O2 Delivery Device Inspired O2 (1-15=lpm fz34-814=%) Sodium 141 (136-145) mEq/L Potassium 4.7 (3.5-5.1) mEq/L Chloride 109 H (98-107) mEq/L Carbon Dioxide 20 L (23-29) mEq/L BUN 87 H (8-23) mg/dL Creatinine 5.16 H (0.70-1.30) mg/dL Est GFR ( Amer) 13 L (> 60) Est GFR (Non-Af Amer) 11 L (> 60) BUN/Creatinine Ratio 17 (6-26) Glucose 149 H (70-105) mg/dL Calculated Osmolality 321 H (280-300) Lactic Acid (0.5-2.2) mmol/L Calcium 11.3 H (8.6-10.3) mg/dL Total Bilirubin 0.3 (0.3-1.0) mg/dL AST 20 (13-39) Units/L ALT 15 (7-52) Units/L Alkaline Phosphatase 80 (34-104) Units/L Ammonia (16-53) mcmol/L Troponin I 0.73 H* (< 0.04) ng/mL B-Natriuretic Peptide (Less than 100) pg/mL Serum Total Protein 7.1 (6.4-8.9) g/dL Albumin 3.0 L (3.5-5.7) g/dL Globulin 4.1 H (2.4-3.5) g/dL Albumin/Globulin Ratio 0.7 L (1.1-2.2) 05/24/18 05/24/18 05/24/18 Range/Units 13:16 13:16 13:16 WBC (4.3-11.1) K/mcL RBC (4.19-5.50) M/mcL Hgb (12.9-16.9) g/dL Hct (37.5-50.1) % MCV (83.0-100.0) fL MCH (28.0-33.3) pg MCHC (31.6-35.5) g/dL RDW (11.5-14.5) % Plt Count (140-400) K/mcL MPV (9.4-12.4) fL Immature Gran % (0-4) % Seg Neutrophils % % Lymphocytes % % Monocytes % % Eosinophils % % Basophils % % Neutrophils # (1.6-8.9) K/mcL Lymphocytes # (0.6-4.6) K/mcL Monocytes # (0.0-1.3) K/mcL Eosinophils # (0.0-0.6) K/mcL Basophils # (0.0-0.2) K/mcL PT (9.4-12.1) Seconds INR Sample Site ABG pH (7.32-7.45) pH Units ABG pCO2 (35-45) mmHg ABG pO2 (85-104) mmHg ABG HCO3 (21-27) mEq/L ABG Total CO2 (20-26) mEq/L ABG O2 Saturation (95-98) % ABG Base Excess (-2 to 3) mEq/L Yohan Test O2 Delivery Device Inspired O2 (1-15=lpm kr60-170=%) Sodium (136-145) mEq/L Potassium (3.5-5.1) mEq/L Chloride (98-107) mEq/L Carbon Dioxide (23-29) mEq/L BUN (8-23) mg/dL Creatinine (0.70-1.30) mg/dL Est GFR ( Amer) (> 60) Est GFR (Non-Af Amer) (> 60) BUN/Creatinine Ratio (6-26) Glucose (70-105) mg/dL Calculated Osmolality (280-300) Lactic Acid 2.1 (0.5-2.2) mmol/L Calcium (8.6-10.3) mg/dL Total Bilirubin (0.3-1.0) mg/dL AST (13-39) Units/L ALT (7-52) Units/L Alkaline Phosphatase (34-104) Units/L Ammonia 23 (16-53) mcmol/L Troponin I (< 0.04) ng/mL B-Natriuretic Peptide 786 H (Less than 100) pg/mL Serum Total Protein (6.4-8.9) g/dL Albumin (3.5-5.7) g/dL Globulin (2.4-3.5) g/dL Albumin/Globulin Ratio (1.1-2.2) 05/24/18 Range/Units 13:16 WBC (4.3-11.1) K/mcL RBC (4.19-5.50) M/mcL Hgb (12.9-16.9) g/dL Hct (37.5-50.1) % MCV (83.0-100.0) fL MCH (28.0-33.3) pg MCHC (31.6-35.5) g/dL RDW (11.5-14.5) % Plt Count (140-400) K/mcL MPV (9.4-12.4) fL Immature Gran % (0-4) % Seg Neutrophils % % Lymphocytes % % Monocytes % % Eosinophils % % Basophils % % Neutrophils # (1.6-8.9) K/mcL Lymphocytes # (0.6-4.6) K/mcL Monocytes # (0.0-1.3) K/mcL Eosinophils # (0.0-0.6) K/mcL Basophils # (0.0-0.2) K/mcL PT (9.4-12.1) Seconds INR Sample Site R Radial ABG pH 7.33 (7.32-7.45) pH Units ABG pCO2 35 (35-45) mmHg ABG pO2 72 L (85-104) mmHg ABG HCO3 19 L (21-27) mEq/L ABG Total CO2 20 (20-26) mEq/L ABG O2 Saturation 93 L (95-98) % ABG Base Excess -6 L (-2 to 3) mEq/L Yohan Test N/A O2 Delivery Device Oxy Mask Inspired O2 40.0 (1-15=lpm pn01-478=%) Sodium (136-145) mEq/L Potassium (3.5-5.1) mEq/L Chloride (98-107) mEq/L Carbon Dioxide (23-29) mEq/L BUN (8-23) mg/dL Creatinine (0.70-1.30) mg/dL Est GFR ( Amer) (> 60) Est GFR (Non-Af Amer) (> 60) BUN/Creatinine Ratio (6-26) Glucose (70-105) mg/dL Calculated Osmolality (280-300) Lactic Acid (0.5-2.2) mmol/L Calcium (8.6-10.3) mg/dL Total Bilirubin (0.3-1.0) mg/dL AST (13-39) Units/L ALT (7-52) Units/L Alkaline Phosphatase (34-104) Units/L Ammonia (16-53) mcmol/L Troponin I (< 0.04) ng/mL B-Natriuretic Peptide (Less than 100) pg/mL Serum Total Protein (6.4-8.9) g/dL Albumin (3.5-5.7) g/dL Globulin (2.4-3.5) g/dL Albumin/Globulin Ratio (1.1-2.2) Attestation Statement - Attestation Attestation: I examined this patient and my medical decision-making was reviewed with the Resident Physician. I agree with the documented findings, disposition and treatment plan as described except to the extent set forth below. [id number] time provided Patient arrives by EMS from home. He is visibly dyspneic and tachypneic with accessory muscle use. Coarse lung sounds audible. Patient evaluated immediately upon his arrival to the medical treatment with Dr. Griffin
--- NOTE | 2018-05-24 13:15 | Emergency Department Note ---
Disposition Clinical Impression: SIRS (systemic inflammatory response syndrome), Elevated troponin, Respiratory distress Altered mental status Qualifiers: Altered mental status type: unspecified Qualified Code(s): R41.82 - Altered mental status, unspecified Renal failure Qualifiers: Renal failure chronicity: acute on chronic Acute renal failure type: unspecified Chronic kidney disease stage: unspecified stage Qualified Code(s): N17.9 - Acute kidney failure, unspecified; N18.9 - Chronic kidney disease, unspecified Disposition: Admitted As Inpatient Condition: Serious Referrals: Eleazar Graff MD [Primary Care Provider] - Forms: ED Satisfaction Letter General Adult HPI - General Chief complaint: ED Neuro Symptoms/Deficit Stated complaint: resp distress Time Seen by Provider: 05/24/18 12:56 Source: patient, EMS Mode of arrival: EMS Limitations: altered mental status Nursing Notes Reviewed: Yes Vital Signs Reviewed: Yes - History of Present Illness HPI Narrative: 82-year-old male with a past medical history of congestive heart failure, CKD who presents to the ER via EMS with a complaint of respiratory distress. The patient is hard of hearing and alert and oriented 2 at arrival. History is obtained from EMS. Reports they were called for potential stroke like symptoms. He was found in respiratory distress. He was not hypoxic initially. He was given a DuoNeb treatment and brought in for evaluation. The patient states that he has been short of breath for a year and that he started having facial numbness and numbness in his right leg 5 years ago. Family arrived which is his daughter saying that for the last few days he has been slurring words at home and has been too weak to walk around. States he was admitted a little over a month ago for she is with his kidneys. Pt Subjective Complaint: Respiratory distress Onset (ago): unknown Pain Scale: 0 Improves with: nothing Worsens with: nothing Associated symptoms: Reports: cough. Denies: chest pain, nausea/vomiting Treatments Prior to Arrival: other (DuoNeb treatment) - Related Data Home Medications Medication Instructions Recorded Confirmed Aspirin [Lo-Dose Aspirin EC] 81 mg PO DAILY 04/10/18 04/10/18 Clopidogrel [Plavix] 75 mg PO DAILY 04/10/18 04/10/18 Metoprolol XL (24 HR) Succ [Toprol 50 mg PO DAILY 04/10/18 04/10/18 XL] Ubidecarenone/Vit E Acetate [Co 1 cap PO DAILY 04/10/18 04/10/18 Q-10 100 mg Softgel] Previous Rx's Medication Instructions Recorded Acetaminophen [Tylenol] 650 mg PO Q6HR PRN 5 Days #20 04/13/18 tablet Amoxicillin/Clavulanate [Augmentin] 500 mg PO BIDWM 7 Days #14 tablet 04/13/18 Ciprofloxacin [Cipro] 250 mg PO DAILY 7 Days #7 tablet 04/13/18 Metoprolol XL (24 HR) Succ [Toprol 75 mg PO DAILY 30 Days #90 04/13/18 Xl] tab.er.24h amLODIPine [Norvasc] 10 mg PO DAILY 30 Days #60 tablet 04/13/18 Allergies Allergy/AdvReac Type Severity Reaction Status Date / Time No Known Allergies Allergy Verified 04/10/18 14:51 All systems ED: reviewed and negative except as stated. Constitutional: Denies: fever Cardiovascular: Denies: chest pain Respiratory: Reports: cough, dyspnea Gastrointestinal: Denies: abdominal pain, nausea, vomiting Neurological: Denies: numbness, paresthesias Past Medical History - Past Medical History Attestation: Yes The following information was validated with the patient. Source: patient, old records reviewed, obtained from family Medical history: Reports: diabetes, hyperlipidemia, hypertension, myocardial infarction, renal disease Psychiatric history: Reports: no psych history - Social History Smoking Status: Current every day smoker Smokeless Tobacco Status: No Alcohol use: Reports: none Drug use: Reports: none Physical Exam - General Limitations: altered mental status General appearance: alert, other (Respiratory distress) - Head Head exam: atraumatic, normocephalic - Eye Eye exam: Present: normal appearance - ENT ENT exam: normal exam - Neck Neck exam: Present: normal inspection - Chest Chest inspection: Present: normal inspection, symmetric chest wall rise - Respiratory Respiratory exam: Present: respiratory distress, accessory muscle use - Cardiovascular Cardiovascular exam: Present: regular rate, normal rhythm, normal heart sounds - Abdominal Exam Abdominal exam: Present: soft, Non-Tender. Absent: tenderness, distention, rigidity - Extremities Exam Extremities exam: Present: normal inspection, full ROM - Expanded Upper Extremity Exam Shoulder exam: Present: normal inspection, full ROM Arm exam: Present: normal inspection, full ROM Elbow exam: Present: normal inspection, full ROM Forearm/Wrist exam: Present: normal inspection, full ROM Hand exam: Present: normal inspection, full ROM - Expanded Lower Extremity Exam Hip/Pelvis exam: Present: normal inspection Upper leg exam: Present: normal inspection Knee exam: Present: normal inspection Lower leg exam: Present: normal inspection Ankle exam: Present: normal inspection Foot/toe exam: Present: normal inspection Neurovascular/Tendon exam: Absent: motor deficit, sensory deficit - Neurological Exam Neurological exam: Present: alert, CN II-XII intact. Absent: oriented X3 - Expanded Neurological Exam Patient oriented to: Present: person, place Speech: Present: fluid speech Cranial nerves: EOM function (II, III, IV, ): Normal, facial sensation (V): Normal, spinal accessory function (XI): Normal, tongue deviation (XII): Normal Motor strength - LUE: 5/5 Motor strength - RUE: 5/5 Motor strength - LLE: 4/5 Motor strength - RLE: 4/5 Sensory exam upper extremity: light touch: Normal Sensory exam lower extremity: light touch: Normal Coma Scale Eye Opening: Spontaneous Coma Scale Motor Response: Obeys Commands Coma Scale Verbal Response: Oriented Coma Scale Total: 15 - Skin Skin exam: Present: warm, dry Course Course Narrative: Patient seen and examined. Vital signs reviewed. He is alert and oriented 2. He is in respiratory distress. Appears volume overloaded. Plan for EKG, chest x-ray, BiPAP, CT head for altered mental status, labs, urinalysis. - Reevaluation(s) Reevaluation #1: Patient unable to urinate at this time. Patient's family would not like him cathed. Reevaluation #2: Patient refuses BiPAP. Reevaluation #3: Discussed results of imaging and lab work with the patient and family. Discussed how he is severely ill at this point and renal failure with concern for underlying infection. Family seems to understand the severity of his illness. They report that when he was last here that he had DNR orders. The patient had wishes of no compressions, intubation or shocks. The family would like to make him comfortable at this time. Discussed comfort care management. They are in agreement with this. There are also agreeable with IV fluids and give him antibiotics. I discussed with the family that we would have them speak with palliative care as well which they are comfortable with. - Consultations Consultation #1: I spoke with the on-call liquor bridge operator helper concerning the patient's renal failure. Discussed history as well as current concerns. Agrees with gentle IV hydration. The patient has always refused dialysis in the past. He will likely be hospice on this admission. Nephrology will follow in consultation. Vital Signs Temperature 98.5 F 05/24/18 13:01 Pulse Rate 90 05/24/18 13:01 Respiratory Rate 28 05/24/18 13:01 Blood Pressure 153/82 05/24/18 13:01 O2 Sat by Pulse Oximetry 97 05/24/18 13:01 Temperature 98.2 F 05/24/18 13:47 Pulse Rate 86 05/24/18 13:43 Respiratory Rate 26 05/24/18 13:43 Blood Pressure 130/77 05/24/18 13:43 O2 Sat by Pulse Oximetry 96 05/24/18 13:43 Oxygen Delivery Oxygen Delivery Oximizer Medical Decision Making - MDM Narrative Medical decision making narrative: 82-year-old male presenting in respiratory distress. Family is reporting days of altered mental status. The patient appears alert and oriented 2. Tachypnea improved with supplemental oxygen supplementation. His x-ray is grossly unchanged from previous. He does have a leukocytosis of unknown etiology. His EKG is without ischemic findings however troponin elevation likely in the setting of underlying infectious etiology in conjunction with acute renal failure. I had a lengthy discussion with the patient and family about goals of care which point they deem the patient appropriate for comfort care. Consultation for palliative care ordered. Case also discussed with nephrology who will evaluate the patient. The patient was administered broad- spectrum IV antibiotics as well as gentle IV fluid hydration. Admitted to the hospitalist service. - Lab Data Lab results reviewed: Yes I reviewed the patient's lab results. Result diagrams: 05/24/18 13:16 05/24/18 13:16 Lab Results 05/24/18 05/24/18 05/24/18 Range/Units 13:16 13:16 13:16 WBC 20.1 H (4.3-11.1) K/mcL RBC 3.94 L (4.19-5.50) M/mcL Hgb 11.4 L (12.9-16.9) g/dL Hct 36.5 L (37.5-50.1) % MCV 92.6 (83.0-100.0) fL MCH 28.9 (28.0-33.3) pg MCHC 31.2 L (31.6-35.5) g/dL RDW 15.6 H (11.5-14.5) % Plt Count 290 (140-400) K/mcL MPV 10.9 (9.4-12.4) fL Immature Gran % 0.8 (0-4) % Seg Neutrophils % 90.5 % Lymphocytes % 3.3 % Monocytes % 5.3 % Eosinophils % 0.0 % Basophils % 0.1 % Neutrophils # 18.2 H (1.6-8.9) K/mcL Lymphocytes # 0.7 (0.6-4.6) K/mcL Monocytes # 1.1 (0.0-1.3) K/mcL Eosinophils # 0.0 (0.0-0.6) K/mcL Basophils # 0.0 (0.0-0.2) K/mcL PT 14.9 H (9.4-12.1) Seconds INR 1.3 Sample Site ABG pH (7.32-7.45) pH Units ABG pCO2 (35-45) mmHg ABG pO2 (85-104) mmHg ABG HCO3 (21-27) mEq/L ABG Total CO2 (20-26) mEq/L ABG O2 Saturation (95-98) % ABG Base Excess (-2 to 3) mEq/L Yohan Test O2 Delivery Device Inspired O2 (1-15=lpm pn88-928=%) Sodium 141 (136-145) mEq/L Potassium 4.7 (3.5-5.1) mEq/L Chloride 109 H (98-107) mEq/L Carbon Dioxide 20 L (23-29) mEq/L BUN 87 H (8-23) mg/dL Creatinine 5.16 H (0.70-1.30) mg/dL Est GFR ( Amer) 13 L (> 60) Est GFR (Non-Af Amer) 11 L (> 60) BUN/Creatinine Ratio 17 (6-26) Glucose 149 H (70-105) mg/dL Calculated Osmolality 321 H (280-300) Lactic Acid (0.5-2.2) mmol/L Calcium 11.3 H (8.6-10.3) mg/dL Total Bilirubin 0.3 (0.3-1.0) mg/dL AST 20 (13-39) Units/L ALT 15 (7-52) Units/L Alkaline Phosphatase 80 (34-104) Units/L Ammonia (16-53) mcmol/L Troponin I 0.73 H* (< 0.04) ng/mL B-Natriuretic Peptide (Less than 100) pg/mL Serum Total Protein 7.1 (6.4-8.9) g/dL Albumin 3.0 L (3.5-5.7) g/dL Globulin 4.1 H (2.4-3.5) g/dL Albumin/Globulin Ratio 0.7 L (1.1-2.2) 05/24/18 05/24/18 05/24/18 Range/Units 13:16 13:16 13:16 WBC (4.3-11.1) K/mcL RBC (4.19-5.50) M/mcL Hgb (12.9-16.9) g/dL Hct (37.5-50.1) % MCV (83.0-100.0) fL MCH (28.0-33.3) pg MCHC (31.6-35.5) g/dL RDW (11.5-14.5) % Plt Count (140-400) K/mcL MPV (9.4-12.4) fL Immature Gran % (0-4) % Seg Neutrophils % % Lymphocytes % % Monocytes % % Eosinophils % % Basophils % % Neutrophils # (1.6-8.9) K/mcL Lymphocytes # (0.6-4.6) K/mcL Monocytes # (0.0-1.3) K/mcL Eosinophils # (0.0-0.6) K/mcL Basophils # (0.0-0.2) K/mcL PT (9.4-12.1) Seconds INR Sample Site ABG pH (7.32-7.45) pH Units ABG pCO2 (35-45) mmHg ABG pO2 (85-104) mmHg ABG HCO3 (21-27) mEq/L ABG Total CO2 (20-26) mEq/L ABG O2 Saturation (95-98) % ABG Base Excess (-2 to 3) mEq/L Yohan Test O2 Delivery Device Inspired O2 (1-15=lpm xa38-754=%) Sodium (136-145) mEq/L Potassium (3.5-5.1) mEq/L Chloride (98-107) mEq/L Carbon Dioxide (23-29) mEq/L BUN (8-23) mg/dL Creatinine (0.70-1.30) mg/dL Est GFR ( Amer) (> 60) Est GFR (Non-Af Amer) (> 60) BUN/Creatinine Ratio (6-26) Glucose (70-105) mg/dL Calculated Osmolality (280-300) Lactic Acid 2.1 (0.5-2.2) mmol/L Calcium (8.6-10.3) mg/dL Total Bilirubin (0.3-1.0) mg/dL AST (13-39) Units/L ALT (7-52) Units/L Alkaline Phosphatase (34-104) Units/L Ammonia 23 (16-53) mcmol/L Troponin I (< 0.04) ng/mL B-Natriuretic Peptide 786 H (Less than 100) pg/mL Serum Total Protein (6.4-8.9) g/dL Albumin (3.5-5.7) g/dL Globulin (2.4-3.5) g/dL Albumin/Globulin Ratio (1.1-2.2) 05/24/18 Range/Units 13:16 WBC (4.3-11.1) K/mcL RBC (4.19-5.50) M/mcL Hgb (12.9-16.9) g/dL Hct (37.5-50.1) % MCV (83.0-100.0) fL MCH (28.0-33.3) pg MCHC (31.6-35.5) g/dL RDW (11.5-14.5) % Plt Count (140-400) K/mcL MPV (9.4-12.4) fL Immature Gran % (0-4) % Seg Neutrophils % % Lymphocytes % % Monocytes % % Eosinophils % % Basophils % % Neutrophils # (1.6-8.9) K/mcL Lymphocytes # (0.6-4.6) K/mcL Monocytes # (0.0-1.3) K/mcL Eosinophils # (0.0-0.6) K/mcL Basophils # (0.0-0.2) K/mcL PT (9.4-12.1) Seconds INR Sample Site R Radial ABG pH 7.33 (7.32-7.45) pH Units ABG pCO2 35 (35-45) mmHg ABG pO2 72 L (85-104) mmHg ABG HCO3 19 L (21-27) mEq/L ABG Total CO2 20 (20-26) mEq/L ABG O2 Saturation 93 L (95-98) % ABG Base Excess -6 L (-2 to 3) mEq/L Yohan Test N/A O2 Delivery Device Oxy Mask Inspired O2 40.0 (1-15=lpm un16-084=%) Sodium (136-145) mEq/L Potassium (3.5-5.1) mEq/L Chloride (98-107) mEq/L Carbon Dioxide (23-29) mEq/L BUN (8-23) mg/dL Creatinine (0.70-1.30) mg/dL Est GFR ( Amer) (> 60) Est GFR (Non-Af Amer) (> 60) BUN/Creatinine Ratio (6-26) Glucose (70-105) mg/dL Calculated Osmolality (280-300) Lactic Acid (0.5-2.2) mmol/L Calcium (8.6-10.3) mg/dL Total Bilirubin (0.3-1.0) mg/dL AST (13-39) Units/L ALT (7-52) Units/L Alkaline Phosphatase (34-104) Units/L Ammonia (16-53) mcmol/L Troponin I (< 0.04) ng/mL B-Natriuretic Peptide (Less than 100) pg/mL Serum Total Protein (6.4-8.9) g/dL Albumin (3.5-5.7) g/dL Globulin (2.4-3.5) g/dL Albumin/Globulin Ratio (1.1-2.2) - Radiology Data Radiology results reviewed: Yes I reviewed the patient's radiology results. Chest X-Ray 05/24/18 12:59 IMPRESSION: 1. Development of linear opacification within the right mid lung likely representing atelectasis. 2. Unchanged mild bibasilar opacification. D/ / Lex Dempsey MD / Lex Dempsey MD Interpreting Provider: Lex Dempsey MD Head CT 05/24/18 13:07 IMPRESSION: No acute intracranial abnormality. D/ / Edison Javier MD / Edison Javier MD Interpreting Provider: Edison Javier MD - EKG Data EKG #1 EKG attestation: Yes I reviewed and interpreted this EKG. EKG results narrative: EKG demonstrates an ectopic atrial rhythm with a rate of 93 bpm. Normal axis. Normal intervals. Normal R-wave progression. No gross ST elevations or depressions. No acute ischemic findings. Kristine - Kristine Situation: Demographics, MOA Background: Presenting Complaint, Relevant PMH, Meds, & Allergies Assessment: Course and respsone to treatment, Exam Concerns, Patient/Family Expectation, Pertinant Lab Results Recommendation: Barrier(s) to disposition, Recommendation based on pending studies, treatments, or consults Kristine Report Given to: Dr. Kadi Carmona Repor Time: 15:11
[2018-05-24 13:25] LABS: Basophils % 0.1 %; Hematocrit 36.5 % (37.5-50.1); Hemoglobin 11.4 g/dL (12.9-16.9); Immature Granulocytes % 0.8 % (0-4); Lymphocytes # 0.7 K/mcL (0.6-4.6); Lymphocytes % 3.3 %; Mean Corpuscular HGB Conc 31.2 g/dL (31.6-35.5); Mean Corpuscular Hemoglobin 28.9 pg (28.0-33.3); Mean Corpuscular Volume 92.6 fL (83.0-100.0); Mean Platelet Volume 10.9 fL (9.4-12.4); Monocytes # 1.1 K/mcL (0.0-1.3); Monocytes % 5.3 %; Neutrophils # 18.2 K/mcL (1.6-8.9); Platelet Count 290 K/mcL (140-400); Red Blood Count 3.94 M/mcL (4.19-5.50); Red Cell Distribution Width 15.6 % (11.5-14.5); Segmented Neutrophils % 90.5 %
[2018-05-24 13:31] LABS: INR 1.3; Prothrombin Time 14.9 Seconds (9.4-12.1)
[2018-05-24 13:33] LABS: ABG Base Excess -6 mEq/L (-2 to 3); ABG HCO3 19 mEq/L (21-27); ABG Oxygen Saturation 93 % (95-98); ABG PCO2 35 mmHg (35-45); ABG PH 7.33 pH Units (7.32-7.45); ABG PO2 72 mmHg (85-104); ABG TCO2 20 mEq/L (20-26)
[2018-05-24 13:52] LABS: Albumin/Globulin Ratio 0.7 (1.1-2.2); Bilirubin,Total 0.3 mg/dL (0.3-1.0); Calcium 11.3 mg/dL (8.6-10.3); Globulin 4.1 g/dL (2.4-3.5); Potassium 4.7 mEq/L (3.5-5.1); Total Protein 7.1 g/dL (6.4-8.9)
[2018-05-24 13:57] LABS: Troponin I 0.73 ng/mL (< 0.04)
[2018-05-24] MEDS ORDERED: Piperacillin/Tazobactam 3.375 GM in Water for inj. (sterile) 20 ML 20 ML IVP ONE (14:55)
[2018-05-24] MEDS ORDERED: 0.9 % Sodium Chloride Mini Bag 100 ML ONE (15:23)
[2018-05-24] MEDS: 0.9 % Sodium Chloride 1,000 ML IVC SCH (15:42)
[2018-05-24] MEDS ORDERED: Naloxone 0.4 MG/ML INJ IVP PRN (16:59)
[2018-05-24] MEDS ORDERED: *HR* OxyCODONE Immed Rel 5 MG TABLET PO PRN (17:06)
[2018-05-24] MEDS ORDERED: Vancomycin 1 EACH in 0.9 % Sodium Chloride 250 ML IVPB SCH (18:00)
--- NOTE | 2018-05-24 18:27 | Internal Med History&Physical ---
Date of Encounter: 05/24/18 Time of Encounter: 18:25 Internal Medicine - H&P: HPI Chief complaint: Weakness/difficulty breathing. Low back pain Admitted From: Home Plans for Post Hospital Care: Hospice - Medical Facility History of present illness: The patient is an 82-year-old man. He does have end-stage renal disease, likely secondary to long-standing hypertension (he does not have diabetes mellitus). He was offered hemodialysis during his last hospitalization hererefused. He has had progressing weakness and difficulty breathing for the last few days. The last time he was able to walk was 4-5 days ago. There is no history of fever or chills. He has been suffering from low back pain for years. It got somewhat worse recently. The patient was found very dyspneic when arriving to the emergency room. He was put on oxygen mask. He was found to have atelectasis versus pneumonic infiltrate on the right side of his lungs. He does have leukocytosis of 20.1 thousand. His creatinine is 5.16; it was 2.55 in April. The patient is treated for hypertension and hyperlipidemia. He has developed stage IV/stage V CKD. He suffers from chronic low back pain. The patient refused hemodialysis when he was hospitalized here last time. REVIEW OF SYSTEMS: I reviewed 14 organ systems with his a daughter. The patient is very dyspneic; he is not able to give me any history. Positive and pertinent negative findings are listed above. The rest of organ systems is negative. PHYSICAL EXAM: The patient shows a respiratory distress. He also suffers from low back pain. Skin: Free of rash and discoloration. Eyes: Sclera is white. There is no discharge from eyes. ENMT: Oral/pharyngeal mucosa is normal in appearance. There is no discharge from nose or ears. Respiratory: Normal breath sounds with no crackles and wheezes bilaterally. CV: Heart is regular with no gallop or murmur. GI: Abdomen is flat and soft with no palpable mass or visceromegaly. : There is no tenderness in patient's flanks bilaterally. Neuro exam: He is moving all his extremities. ADDITIONAL DATA: Chest x-ray shows development of linear opacification within the right mid lung , likely representing atelectasis (versus pneumonia). CT of head does not show any significant abnormalities. His WBC count is 20.1 thousand. Associated with hemoglobin of 11.4 and normal platelet count. His electrolytes are normal. His creatinine is 5.16; 2.55 in April of this year. His troponin is 0.73. ABG was done on FiO2 of 40%. Showed pH of 7.33 with PCO2 of 35 and PO2 of 72. A/P: This patient is likely developing pneumonia; with acute hypoxic respiratory failure. He does have sepsis. He is immunocompromised due to his age and end- stage renal disease. Nephrology and palliative care have been consulted. We talked to the patient's family. He will be made DNR/comfort care. We will give him some IV hydration and IV vancomycin/IV Zosyn. We will give him sublingual oxycodone to control his anxiety/pain. He will get supplemental oxygen. We will likely discontinue all his treatments either today or tomorrow morning. Past Med Surg Social Fam HX - Past Medical History Medical history: diabetes, hyperlipidemia, hypertension, myocardial infarction, renal disease Additional medical history: BPH, low vitamin D, low iron, DJD, OAB, anemia Psychiatric history: no psych history - Past Surgical History Additional surgical history: abd stent at [place] - Social History Smoking Status: Current every day smoker Smokeless Tobacco Status: No Alcohol use: none Drug use: none - Family History Mother Living Status: Hx Family Cardiac Disorders: Yes Internal Medicine - H&P: Meds Aspirin [Lo-Dose Aspirin EC] 81 mg PO DAILY 04/10/18 [History] Clopidogrel [Plavix] 75 mg PO DAILY 04/10/18 [History] Metoprolol XL (24 HR) Succ [Toprol XL] 50 mg PO DAILY 04/10/18 [History] Ubidecarenone/Vit E Acetate [Co Q-10 100 mg Softgel] 1 cap PO DAILY 04/10/18 [ History] Acetaminophen [Tylenol] 650 mg PO Q6HR PRN 5 Days #20 tablet 04/13/18 [Rx] Amoxicillin/Clavulanate [Augmentin] 500 mg PO BIDWM 7 Days #14 tablet 04/13/18 [ Rx] Ciprofloxacin [Cipro] 250 mg PO DAILY 7 Days #7 tablet 04/13/18 [Rx] Metoprolol XL (24 HR) Succ [Toprol Xl] 75 mg PO DAILY 30 Days #90 tab.er.24h 09/29 [Rx] amLODIPine [Norvasc] 10 mg PO DAILY 30 Days #60 tablet 04/13/18 [Rx] 3 Allergy/AdvReac Type Severity Reaction Status Date / Time No Known Allergies Allergy Verified 04/10/18 14:51 - Constitutional Vitals: Temp Pulse Resp BP Pulse Ox 98.2 F 81 25 169/101 97 05/24/18 13:47 05/24/18 16:00 05/24/18 16:00 05/24/18 16:00 05/24/18 16:00 General appearance: Present: A&O X 1, severe distress Exam: xx Internal Med - H&P Results - Labs CBC & Chem 7: 05/24/18 13:16 05/24/18 13:16 - Time Spent With Patient Total time spent is greater than 50% in coordination of care (as documented) at patient's floor/unit and/or counseling patient: 25 - 35 minutes
[2018-05-24] MEDS: OXYCODONE Oral CONC 10 MG/0.5 ML ORAL.SYG SL PRN (18:30)
[2018-05-24] MEDS: Piperacillin/Tazobactam 3.375 GM in 0.9 % Sodium Chloride Mini Bag 100 ML IVPB SCH (18:54)
[2018-05-25] MEDS: OXYCODONE Oral CONC 10 MG/0.5 ML ORAL.SYG SL PRN ×2 (01:58→06:56)
[2018-05-25 02:51] LABS: Acinetobacter baumannii by PCR Not Detected (Not Detect); Candida albicans by PCR Not Detected (Not Detect); Candida glabrata by PCR Not Detected (Not Detect); Candida krusei by PCR Not Detected (Not Detect); Candida parapsilosis by PCR Not Detected (Not Detect); Candida tropicalis by PCR Not Detected (Not Detect); Enterobacter cloacae Cmplx PCR Not Detected (Not Detect); Enterobacteriaceae by PCR Not Detected (Not Detect); Enterococcus by PCR Not Detected (Not Detect); Escherichia coli by PCR Not Detected (Not Detect); Klebsiella oxytoca by PCR Not Detected (Not Detect); Klebsiella pneumoniae by PCR Not Detected (Not Detect); Proteus by PCR Not Detected (Not Detect); Pseudomonas aeruginosa by PCR Not Detected (Not Detect); Serratia marcescens by PCR Not Detected (Not Detect); Staphylococcus aureus by PCR DETECTED (Not Detect); Staphylococcus by PCR DETECTED (Not Detect); Streptococcus agalactiae(B)PCR Not Detected (Not Detect); Streptococcus by PCR Not Detected (Not Detect); Streptococcus pneumoniae PCR Not Detected (Not Detect); Streptococcus pyogenes (A) PCR Not Detected (Not Detect); blaKPC Carbapenem-Resist Gene Not Detected (Not Detect); mecA Methicillin-Resist Gene Not Detected (Not Detect); vanA/B Vancomycin-Resist Genes Not Detected (Not Detect)
[2018-05-25 06:19] LABS: Basophils # 0.1 K/mcL (0.0-0.2); Basophils % 0.2 %; Hematocrit 36.6 % (37.5-50.1); Hemoglobin 11.1 g/dL (12.9-16.9); Immature Granulocytes % 0.7 % (0-4); Lymphocytes # 0.9 K/mcL (0.6-4.6); Mean Corpuscular HGB Conc 30.3 g/dL (31.6-35.5); Mean Corpuscular Hemoglobin 29.4 pg (28.0-33.3); Mean Corpuscular Volume 96.8 fL (83.0-100.0); Mean Platelet Volume 10.7 fL (9.4-12.4); Monocytes # 1.3 K/mcL (0.0-1.3); Monocytes % 5.7 %; Neutrophils # 19.5 K/mcL (1.6-8.9); Platelet Count 299 K/mcL (140-400); Red Blood Count 3.78 M/mcL (4.19-5.50); Red Cell Distribution Width 16.1 % (11.5-14.5); Segmented Neutrophils % 89.4 %
[2018-05-25 06:45] LABS: Calcium 11.3 mg/dL (8.6-10.3); Potassium 6.2 mEq/L (3.5-5.1)
[2018-05-25] MEDS: 0.9 % Sodium Chloride 1,000 ML IVC SCH (06:51)
[2018-05-25] MEDS: Piperacillin/Tazobactam 3.375 GM in 0.9 % Sodium Chloride Mini Bag 100 ML IVPB SCH (06:59)
[2018-05-25] MEDS ORDERED: Aminoglycoside Consult 1 EACH MC ONE (09:13)
[2018-05-25] MEDS ORDERED: *HR* FentaNYL (PF) 100 MCG/2 ML VIAL IVP PRN (10:59)
[2018-05-25] MEDS ORDERED: *HR* LORazepam 2 MG/ML VIAL IVP PRN (11:00)
[2018-05-25] MEDS ORDERED: Atropine Sulfate 1% 40 DROP/2 ML BOTTLE SL PRN (11:01)
--- NOTE | 2018-05-25 11:07 | Palliative - Consult Note ---
Date of Encounter: 05/25/18 Time of Encounter: 11:00 - Assessment and Plan (1) Respiratory distress Current Visit: Yes Status: Acute Assessment and plan: Appears pt is actively dying. Family asking if he can have IV medication, they do not like the oral liquid. He is mottled and in respiratory distress. Will begin Fentanyl drip for comfort and allow boluses for breakthrough PRN if needed. Continue supportive oxygen. (2) Restlessness and agitation Current Visit: Yes Status: Acute Assessment and plan: Lorazepam PRN if needed. (3) Goals of care, counseling/discussion Current Visit: No Status: Acute Assessment and plan: Son and daughter at bedside. They desire pt to be comfortable only. Originally pt had wanted to be enrolled with [facility] hospice and pass away at home, however, he appears terminal and actively dying. Do not believe that he is stable enough at this point to survive transport home. D/W family who verbalized understanding. If he survives the next 24 hours, we can re- evaluate. We did discuss transition to inpatient hospice here, but explained that that would be using [facility]. If pt survives next 24 hours, Will f/u in am and re-evaluate either GIP transition here or home with [facility] as pt had desired. (4) ROBIN (acute kidney injury) Current Visit: No Status: Acute (5) Acute on chronic renal failure Current Visit: No Status: Acute Qualifiers: Acute renal failure type: unspecified Chronic kidney disease stage: stage 4 (severe) Qualified Code(s): N17.9 - Acute kidney failure, unspecified; N18.4 - Chronic kidney disease, stage 4 (severe) Palliative-CN HPI - Data of Consult Requesting Physician: Yusuf Agudelo Primary Care Provider: Eleazar Graff MD - Consult Narrative History of present illness: Mr. Patiño is a 82 year old male who was admitted after he has experienced difficulty breathing and weakness over the last few days at home. He lives with his son, and son states that he has end stage renal disease, and has refused dialysis. Other medical history includes: HTN, AL, anemia, chronic low back pain. Son States he does not like to be in hospital. Upon evaluation, he had leukocytosis, and acute on chronic renal failure. CXR demonstrated opacification right lung. CT head normal. FiO2 on ABG 40. PO2 72. He was started on fluids and IV antibiotics. His condition this am has continued to deterioration and he has mottling of bilateral lower extremities. He still has labored respiration. Oxygen saturation currently 84%. BP 94/63, heart rate 120. RR 30. Son and daughter are at bedside. State that pt also has son in [place], he is aware of pt condition. CC: Yusuf Agudelo - Time Spent with Patient Time: Total time spent is greater than 50% in coordination of care (as documented) at patient's floor/unit and/or counseling patient: Past Med Surg Social Fam HX - Past Medical History Medical history: diabetes, hyperlipidemia, hypertension, myocardial infarction, renal disease Additional medical history: BPH, low vitamin D, low iron, DJD, OAB, anemia Psychiatric history: no psych history - Past Surgical History Additional surgical history: abd stent at [place] - Social History Smoking Status: Current every day smoker Smokeless Tobacco Status: No Alcohol use: none Drug use: none - Family History Mother Living Status: Hx Family Cardiac Disorders: Yes Medications and Allergies Aspirin [Lo-Dose Aspirin EC] 81 mg PO DAILY 04/10/18 [History] Clopidogrel [Plavix] 75 mg PO DAILY 04/10/18 [History] Metoprolol XL (24 HR) Succ [Toprol XL] 50 mg PO DAILY 04/10/18 [History] Ubidecarenone/Vit E Acetate [Co Q-10 100 mg Softgel] 1 cap PO DAILY 04/10/18 [ History] Acetaminophen [Tylenol] 650 mg PO Q6HR PRN 5 Days #20 tablet 04/13/18 [Rx] Amoxicillin/Clavulanate [Augmentin] 500 mg PO BIDWM 7 Days #14 tablet 04/13/18 [ Rx] Ciprofloxacin [Cipro] 250 mg PO DAILY 7 Days #7 tablet 04/13/18 [Rx] Metoprolol XL (24 HR) Succ [Toprol Xl] 75 mg PO DAILY 30 Days #90 tab.er.24h 09/29 [Rx] amLODIPine [Norvasc] 10 mg PO DAILY 30 Days #60 tablet 04/13/18 [Rx] 3 Allergy/AdvReac Type Severity Reaction Status Date / Time No Known Allergies Allergy Verified 04/10/18 14:51 ROS unobtainable: due to mental status Palliative Care-Exam - Constitutional Vitals: Temp Pulse Resp BP Pulse Ox 98.4 F 108 22 94/63 84 05/25/18 10:46 05/25/18 10:46 05/25/18 10:46 05/25/18 10:46 05/25/18 10:46 General appearance: Present: mild distress - Head Head Exam: Present: normal inspection, normocephalic - Respiratory Additional comments: Breath sounds very diminished. Resp shallow with accessory muscle use. - Cardiovascular Cardiovascular exam: Present: irregular rhythm, tachycardia - GI/Abdominal Exam GI/Abdominal exam: Present: distended - Extremities Exam Additional comments: Mottling noted to bilateral lower extremities - Neurological Exam Additional comments: Unresponsive to verbal or tactile stimuli - Skin Skin exam: Present: dry, mottled, pallor Internal Medicine - CN: Reslt - Labs CBC & Chem 7: 05/25/18 06:08 05/25/18 06:08 Labs: Short CBC 05/25/18 Range/Units 06:08 WBC 21.8 H (4.3-11.1) K/mcL Hgb 11.1 L (12.9-16.9) g/dL Hct 36.6 L (37.5-50.1) % Plt Count 299 (140-400) K/mcL Neutrophils # 19.5 H (1.6-8.9) K/mcL BMP 05/25/18 06:08 Sodium 143 Potassium 6.2 H D Chloride 111 H Carbon Dioxide 22 L BUN 103 H Creatinine 6.11 H Glucose 130 H Calcium 11.3 H - ABG Interpretation ABG results: ABG ABG pH 7.33 pH Units (7.32-7.45) 05/24/18 13:16 ABG pCO2 35 mmHg (35-45) 05/24/18 13:16 ABG pO2 72 mmHg (85-104) L 05/24/18 13:16 ABG O2 Saturation 93 % (95-98) L 05/24/18 13:16 PT/INR, D-dimer PT 14.9 Seconds (9.4-12.1) H 05/24/18 13:16 Consult Discharge Plan - Plan Referrals: Eleazar Graff MD [Primary Care Provider] - Palliative Quality Palliative Quality: Screen for Code Status: Yes, Screen for Goals of Care: Yes, Screen for Pain: Yes, If Pain Regimen Started, Initiate Bowel Regimen: NA, Screen for Nausea/Vomitting: Yes
--- NOTE | 2018-05-25 11:52 | Event Note ---
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 He has on more than one occasion informed that dialysis is not a part of his wishes. He is now on Comfort Care, and spoke with his son at the bedside of 2A31, and he too reaffirmed that the pt would never want dialysis. With hyperkalemia, ROBIN on CKD, Tachycardia and relative hypotension, his prognosis is poor. Out of courtesy I will not bill (and therefore not write up) a consultation, but I did want to document the above during this admission. Thank you for having consulted the [facility]. I will be available if needed. Will sign-off. Thank you.
[2018-05-25] MEDS: FentaNYL (PF) 1,000 MCG in 0.9 % Sodium Chloride 80 ML IVC SCH (12:02)
--- NOTE | 2018-05-25 16:07 | Internal Med Progress Note ---
Hospitalist Progress Note - Encounter Date of Encounter: 05/25/18 Time of Encounter: 16:03 - Subjective Interval History: Subjective: The patient is basically dying. He does not show any pain distress; we gave him when necessary oxycodone. He does not communicate to us at all. Yesterday evening we discontinued IV fluids. Today morning we discontinued his IV antibiotics. He has only comfort measures medications. Objective: No distress is seen. He said breathing is deep and of increased frequency. Lungs: Normal breath sounds with no crackles and wheezes bilaterally. Heart: Regular with no gallop or murmur. Abdomen: Soft and not tender. Assessment and plan: This patient is dying from pneumonia/acute respiratory failure/sepsis. He has been made comfort measures only by his family. We will continue when necessary concentrated solution oxycodone and other comfort measure medications/ treatments. 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 Current Visit: Yes Status: Chronic (5) Low back pain Current Visit: Yes Status: Acute - Time Spent with Patient Total time spent is greater than 50% in coordination of care (as documented) at patient's floor/unit and/or counseling patient: 25 - 35 minutes Plan of Care Discussed with: family Internal Medicine: Result - Labs CBC & Chem 7: 05/25/18 06:08 05/25/18 06:08 Labs: Short CBC 05/25/18 Range/Units 06:08 WBC 21.8 H (4.3-11.1) K/mcL Hgb 11.1 L (12.9-16.9) g/dL Hct 36.6 L (37.5-50.1) % Plt Count 299 (140-400) K/mcL Neutrophils # 19.5 H (1.6-8.9) K/mcL BMP 05/25/18 06:08 Sodium 143 Potassium 6.2 H D Chloride 111 H Carbon Dioxide 22 L BUN 103 H Creatinine 6.11 H Glucose 130 H Calcium 11.3 H - ABG Interpretation ABG results: ABG ABG pH 7.33 pH Units (7.32-7.45) 05/24/18 13:16 ABG pCO2 35 mmHg (35-45) 05/24/18 13:16 ABG pO2 72 mmHg (85-104) L 05/24/18 13:16 ABG O2 Saturation 93 % (95-98) L 05/24/18 13:16 PT/INR, D-dimer PT 14.9 Seconds (9.4-12.1) H 05/24/18 13:16 Consult Discharge Plan - Plan Referrals: Eleazar Graff MD [Primary Care Provider] - (1) PNA (pneumonia) Qualifiers: Pneumonia type: due to unspecified organism Laterality: right Lung location : unspecified part of lung Qualified Code(s): J18.9 - Pneumonia, unspecified organism (3) Sepsis Qualifiers: Sepsis type: sepsis due to unspecified organism Qualified Code(s): A41.9 - Sepsis, unspecified organism (5) Low back pain Qualifiers: Chronicity: chronic Back pain laterality: midline Sciatica presence: without sciatica Qualified Code(s): M54.5 - Low back pain; G89.29 - Other chronic pain
[2018-05-26 02:26] LABS: Acinetobacter baumannii by PCR Not Detected (Not Detect); Candida albicans by PCR Not Detected (Not Detect); Candida glabrata by PCR Not Detected (Not Detect); Candida krusei by PCR Not Detected (Not Detect); Candida parapsilosis by PCR Not Detected (Not Detect); Candida tropicalis by PCR Not Detected (Not Detect); Enterobacter cloacae Cmplx PCR Not Detected (Not Detect); Enterobacteriaceae by PCR Not Detected (Not Detect); Enterococcus by PCR Not Detected (Not Detect); Escherichia coli by PCR Not Detected (Not Detect); Klebsiella oxytoca by PCR Not Detected (Not Detect); Klebsiella pneumoniae by PCR Not Detected (Not Detect); Proteus by PCR Not Detected (Not Detect); Pseudomonas aeruginosa by PCR Not Detected (Not Detect); Serratia marcescens by PCR Not Detected (Not Detect); Staphylococcus aureus by PCR DETECTED (Not Detect); Staphylococcus by PCR DETECTED (Not Detect); Streptococcus agalactiae(B)PCR Not Detected (Not Detect); Streptococcus by PCR Not Detected (Not Detect); Streptococcus pneumoniae PCR Not Detected (Not Detect); Streptococcus pyogenes (A) PCR Not Detected (Not Detect); mecA Methicillin-Resist Gene Not Detected (Not Detect)
[2018-05-26] MEDS: FentaNYL (PF) 1,000 MCG in 0.9 % Sodium Chloride 80 ML IVC SCH (05:57)
[2018-05-26 07:16] VITALS: BP 90/57
--- NOTE | 2018-05-26 13:11 | Electrocardiograph Report ---
[place] [id number] Test Date: 2018-05-24 Pat Name: Fidel Patiño Department: [id number] Room: 2A31 Gender: Cistern Room Operator: : [id number] Requested By: Juancarlos Pringle Order Number: [id number] Reading MD: Karin Ward Measurements Intervals [place] Rate: 93 P: [place]: QRS: 20 QRSD: 95 T: 92 QT: 330 QTc: 411 Interpretive Statements Probable ectopic atrial rhythm Borderline repolarization abnormality Electronically Signed On 05-26-2018 13:10:28 EDT by Karin Ward
--- NOTE | 2018-05-27 08:39 | Death Note ---
Discharge Sum: Summary - Date and Time Date of admission: 05/24/18 17:55 Date of : 05/26/18 Time of : 10:38 - Summary Details: This 82-year-old man developed pneumonia with acute hypoxic respiratory failure and sepsis. It was on top of his end-stage renal disease. The patient was refusing Hemodialysis during his previous hospitalizations here. The same happened this time. He was confused at admission; the decisions about him were ankit family. They decided to have her comfort measures/DNR. They initially wanted IV fluids and IV antibiotics; without any other treatments. IV fluids were discontinued shortly after the admission to the floor. Then, we discontinued his IV antibiotics, when he was extremely sick. Palliative care was consulted. Eventually, he was pronounced . - Additional Data Confirmation of as documented by pronouncing clinician: no pulse, no respirations, no heart sounds, pupils fixed and dilated Family: not available Attending physician: Yusuf Agudelo Was code activated?: No Autopsy requested?: No finished yarn examiner notified?: No Organ bank notified?: No Advance directives: No Hospice patient?: No Discharge Sum: Diag - PCOD Probable Cause of : Pneumonia Discharge Sum: Prov - Provider Primary care physician: Eleazar Graff MD Admitting clinician: Yusuf Agudelo Attending physician on admission: Yusuf Agudelo Consults: 05/24/18 18:18 Consult to Nutrition [CONS] Stat Comment: Consulting Provider: NUTRITION Reason for Dietary Consult: MST Score Pronouncing clinician: Yusuf Agudelo
== END 2018-05-26 10:38 | disposition expired | DRG 871 ==
LOC: 2ANU 12:54 → EMEROOARM 12:54 → 2ANU 16:39 → SUATTDRO 17:55
PROVIDERS: ADMIT Internal Medicine; ATTEND Internal Medicine